=== PATIENT | female | born 1985 | race Caucasian/White ===

== ENCOUNTER → 2016-11-17 | Outpatient (CLI) | payer MEDICARE, MEDICAID ==
--- NOTE | 2016-11-17 15:27 | CR ---
EXAMINATION: Left knee HISTORY: Pain COMPARISON: 11/11/2016 TECHNIQUE: 4 views FINDINGS/IMPRESSION: There is a trace joint space narrowing within the medial compartment of the lef t knee. No fracture, effusion or acute osseous abnormalities noted. Mild osteophyte formation is not ed within the patellofemoral compartment.
== END | disposition home or self-care (01) ==
LOC: MW.CHIM 07:43
PROVIDERS: ATTEND Physician Assistant
DX: M25.562 Pain in left knee (principal); M25.762 Osteophyte, left knee
CPT/HCPCS: 73564-26-LT; 73564-LT; 99203

== ENCOUNTER 2016-11-22 21:11 | Emergency (ER) | payer MEDICARE, MEDICAID ==
--- NOTE | 2016-11-22 22:44 | EDM.PDOC ---
ED HPI GENERAL MEDICAL PROBLEM - General Chief Complaint: General Stated Complaint: PT HAS STOMACH PAINS Time Seen by Provider: 11/22/16 21:14 Source of Information: Reports: Patient History Limitations: Reports: No limitations - History of Present Illness INITIAL COMMENTS - FREE TEXT/NARRATIVE: Presents reporting abdominal pain that started a couple hours ago. She denies nausea, vomiting, constipation or diarrhea. She states she had a normal BM today. She did not try anything for the pain. She did eat a half of a chicken silver wrapped for supper without any nausea or vomiting afterwards. They are living in her car which also serves as a refrigerator. She has had her appendix and gallbladder removed. LMP in August of 2016 patient states that she has taken multiple test at home and they have all been negative. Denies dysuria, vaginal symptoms including bleeding. Left Lower Abdomen Pain Score (Numeric/FACES): 7 - Related Data Allergies Allergy/AdvReac Type Severity Reaction Status Date / Time metronidazole [From Flagyl] Allergy Vomiting Verified 11/22/16 21:32 Home Meds: Home Meds Albuterol [IMW: Albuterol HFA] 1 puff IH ASDIRECTED 10/31/16 [History] ClonazePAM [KlonoPIN] 0.5 mg PO BID PRN 10/31/16 [History] LORazepam 1 mg PO BEDTIME 10/31/16 [History] Ondansetron HCl [Zofran] 8 mg PO ASDIRECTED 10/31/16 [History] Pantoprazole [Protonix] 40 mg PO DAILY 10/31/16 [History] Rizatriptan Benzoate [Maxalt] 10 mg PO ASDIRECTED PRN 10/31/16 [History] Zolpidem Tartrate [Ambien] 5 mg PO BEDTIME 10/31/16 [History] lamoTRIgine [Lamictal] 200 mg PO BID 10/31/16 [History] Past Medical History HEENT History: Reports: None Cardiovascular History: Reports: None Respiratory History: Reports: Asthma Gastrointestinal History: Reports: None Genitourinary History: Reports: None NURSERY HAND History: Reports: None Musculoskeletal History: Reports: None Neurological History: Reports: Seizure Psychiatric History: Reports: ADHD, Anxiety, Bipolar, Depression Endocrine/Metabolic History: Reports: None Hematologic History: Reports: None Immunologic History: Reports: None Oncologic (Cancer) History: Reports: None Dermatologic History: Reports: None - Infectious Disease History Infectious Disease History: Reports: Chicken pox - Past Surgical History HEENT Surgical History: Reports: Tonsillectomy GI Surgical History: Reports: Appendectomy, Cholecystectomy Musculoskeletal Surgical History: Reports: Arthroscopic knee Social & Family History - Family History Family Medical History: Noncontributory Cardiac: Reports: Heart failure, Hypertension, [place] Endocrine/Metabolic: Reports: Diabetes, type II Oncologic: Reports: Bone, Breast - Tobacco Use Smoking Status *Q: Current Every Day Smoker Years of Tobacco use: 16 Packs/Tins Daily: 0.5 - Caffeine Use Caffeine Use: Reports: Soda, Tea Caffeine Use Comment: 1-2 daily - Recreational Drug Use Recreational Drug Use: No ED ROS GENERAL - Review of Systems Review Of Systems: ROS reveals no pertinent complaints other than HPI. ED EXAM, GENERAL - Physical Exam Exam: See Below Exam Limited By: No limitations General Appearance: alert, no apparent distress Ears: normal external exam Nose: normal inspection Throat/Mouth: Normal inspection Head: atraumatic, normocephalic Neck: normal inspection Respiratory/Chest: no respiratory distress Cardiovascular: normal peripheral pulses GI/Abdominal: normal bowel sounds, soft, no distention, other (Mild tenderness. She was playing on her cell phone while I was palpating her abdomen and she didn 't notice) Rectal (Female) Exam: Normal Exam Back Exam: normal inspection Extremities: normal inspection Neurological: alert, oriented Psychiatric: normal affect, normal mood Skin Exam: Warm, Dry, Intact, Normal color, No rash Lymphatic: no adenopathy Course - Vital Signs Last Recorded V/S: Last Vital Signs Temp 36.1 C 11/22/16 21:33 Pulse 99 11/22/16 21:33 Resp 17 11/22/16 21:33 BP 135/76 11/22/16 21:33 Pulse Ox 97 11/22/16 21:33 Departure - Departure Time of Disposition: 22:42 Disposition: Home, Self-Care 01 Condition: good Clinical Impression: Abdominal pain Qualifiers: Abdominal location: unspecified location Qualified Code(s): R10.9 - Unspecified abdominal pain Referrals: PCP,None [Primary Care Provider] - Naldo Kowalski DO [Physician] - Forms: ED Department Discharge Additional Instructions: 1. You may try Pepto-Bismol. You have abdominal plain please try this along with fluids and rest before coming to the emergency room in the future. 2. followup with your primary provider in the clinic 3. return for vaginal bleeding, high fevers, vomiting
== END 2016-11-22 23:01 | disposition home or self-care (01) ==
LOC: MW.ED 21:11
CPT/HCPCS: 99282; 99283

== ENCOUNTER 2016-11-24 17:47 | Emergency (ER) | payer MEDICARE, MEDICAID | END 2016-11-24 17:54 | disposition left against medical advice (07) | LOC: MW.ED 17:47 | DX: Z53.21 Procedure and treatment not carried out due to patient leaving prior to being seen by health care provider (principal) ==

== ENCOUNTER 2016-11-24 19:36 | Emergency (ER) | payer MEDICARE, MEDICAID ==
--- NOTE | 2016-11-24 20:07 | EDM.PDOC ---
ED HPI GENERAL MEDICAL PROBLEM - General Stated Complaint: COUGH/PAIN THROAT Time Seen by Provider: 11/24/16 20:05 Source of Information: Reports: Patient - History of Present Illness INITIAL COMMENTS - FREE TEXT/NARRATIVE: HISTORY AND PHYSICAL: History of present illness: [] Patient has had runny nose for 24 hours, does have some cough secondary to postnasal drip, no sinus pain or tenderness no fever nausea vomiting chills sweats no chest pain shortness breath headache dizziness or palpitation no bowel or urine symptoms Review of systems: As per history of present illness and below otherwise all systems reviewed and negative. Past medical history: As per history of present illness and as reviewed below otherwise noncontributory. Surgical history: As per history of present illness and as reviewed below otherwise noncontributory. Social history: No reported history of drug or alcohol abuse. Family history: As per history of present illness and as reviewed below otherwise noncontributory. Physical exam: HEENT: Atraumatic, normocephalic, pupils reactive, negative for conjunctival pallor or scleral icterus, mucous membranes moist, throat clear, neck supple, nontender, trachea midline. Nares are patent clear nasal discharge no sinus tenderness no meningeal signs Lungs: Clear to auscultation, breath sounds equal bilaterally, chest nontender. Heart: S1S2, regular, negative for clicks, rubs, or JVD. Abdomen: Soft, nondistended, nontender. Negative for masses or hepatosplenomegaly. Negative for costovertebral tenderness. Pelvis: Stable nontender. Genitourinary: Deferred. Rectal: Deferred. Extremities: Atraumatic, negative for cords or calf pain. Neurovascular unremarkable. Neuro: Awake, alert, oriented. Cranial nerves II through XII unremarkable. Cerebellum unremarkable. Motor and sensory unremarkable throughout. Exam nonfocal. Diagnostics: [] Therapeutics: [] [id number] symptomatic therapies Impression: [] Upper respiratory infection Definitive disposition and diagnosis as appropriate pending reevaluation and review of above. - Related Data Allergies Allergy/AdvReac Type Severity Reaction Status Date / Time metronidazole [From Flagyl] Allergy Vomiting Verified 11/22/16 21:32 Home Meds: Home Meds Albuterol [IMW: Albuterol HFA] 1 puff IH ASDIRECTED 10/31/16 [History] ClonazePAM [KlonoPIN] 0.5 mg PO BID PRN 10/31/16 [History] LORazepam 1 mg PO BEDTIME 10/31/16 [History] Ondansetron HCl [Zofran] 8 mg PO ASDIRECTED 10/31/16 [History] Pantoprazole [Protonix] 40 mg PO DAILY 10/31/16 [History] Rizatriptan Benzoate [Maxalt] 10 mg PO ASDIRECTED PRN 10/31/16 [History] Zolpidem Tartrate [Ambien] 5 mg PO BEDTIME 10/31/16 [History] lamoTRIgine [Lamictal] 200 mg PO BID 10/31/16 [History] Past Medical History HEENT History: Reports: None Cardiovascular History: Reports: None Respiratory History: Reports: Asthma Gastrointestinal History: Reports: None Genitourinary History: Reports: None 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 Musculoskeletal History: Reports: None Neurological History: Reports: Seizure Psychiatric History: Reports: ADHD, Anxiety, Bipolar, Depression Endocrine/Metabolic History: Reports: None Hematologic History: Reports: None Immunologic History: Reports: None Oncologic (Cancer) History: Reports: None Dermatologic History: Reports: None - Infectious Disease History Infectious Disease History: Reports: Chicken pox - Past Surgical History HEENT Surgical History: Reports: Tonsillectomy GI Surgical History: Reports: Appendectomy, Cholecystectomy Musculoskeletal Surgical History: Reports: Arthroscopic knee Social & Family History - Family History Family Medical History: Noncontributory Cardiac: Reports: Heart failure, Hypertension, [place] Endocrine/Metabolic: Reports: Diabetes, type II Oncologic: Reports: Bone, Breast - Tobacco Use Smoking Status *Q: Current Every Day Smoker Years of Tobacco use: 16 Packs/Tins Daily: 0.5 - Caffeine Use Caffeine Use: Reports: Soda, Tea Caffeine Use Comment: 1-2 daily - Recreational Drug Use Recreational Drug Use: No ED ROS GENERAL - Review of Systems Review Of Systems: ROS reveals no pertinent complaints other than HPI. ED EXAM, GENERAL - Physical Exam Exam: See Below Departure - Departure Time of Disposition: 20:06 Disposition: Home, Self-Care 01 Condition: good Clinical Impression: URI (upper respiratory infection) Additional Instructions: [id number] symptomatic therapy is as discussed Delsym may benefit also available [id number] Followup with primary care as scheduled The following information is given to patients seen in the emergency department who are being discharged to home. This information is to outline your options for follow-up care. We provide all patients seen in our emergency department with a follow-up referral. The need for follow-up, as well as the timing and circumstances, are variable depending upon the specifics of your emergency department visit. If you don't have a primary care physician on staff, we will provide you with a referral. We always advise you to contact your personal physician following an emergency department visit to inform them of the circumstance of the visit and for follow-up with them and/or the need for any referrals to a consulting specialist. The emergency department will also refer you to a specialist when appropriate. This referral assures that you have the opportunity for follow-up care with a specialist. All of these measure are taken in an effort to provide you with optimal care, which includes your follow-up. Under all circumstances we always encourage you to contact your private physician who remains a resource for coordinating your care. When calling for follow-up care, please make the office aware that this follow-up is from your recent emergency room visit. If for any reason you are refused follow-up, please contact the [facility] emergency department at and asked to speak to the emergency department charge nurse.
== END 2016-11-24 20:25 | disposition home or self-care (01) ==
LOC: MW.ED 19:36
CPT/HCPCS: 99211; 99214; 99282; 99283

== ENCOUNTER → 2016-11-24 | Outpatient (CLI) | payer MEDICARE, MEDICAID | LOC: MW.CHGS 08:00 | CPT/HCPCS: 99211 ==

== ENCOUNTER 2016-11-27 17:03 | Emergency (ER) | payer MEDICARE, MEDICAID ==
--- NOTE | 2016-11-27 17:10 | EDM.PDOC ---
ED HPI GENERAL MEDICAL PROBLEM - General Chief Complaint: Syncope Stated Complaint: VOMITTING FAINT Time Seen by Provider: 11/27/16 17:10 - History of Present Illness INITIAL COMMENTS - FREE TEXT/NARRATIVE: HISTORY AND PHYSICAL: History of present illness: Patient 31-year-old female presents with generalized weakness she has been seen multiple times in the emergency room for a variety of complaints including weakness no fever chills nausea vomiting chest pain short of breath or other concern Review of systems: As per history of present illness and below otherwise all systems reviewed and negative. Past medical history: As per history of present illness and as reviewed below otherwise noncontributory. Surgical history: As per history of present illness and as reviewed below otherwise noncontributory. Social history: No reported history of drug or alcohol abuse. Family history: As per history of present illness and as reviewed below otherwise noncontributory. Physical exam: HEENT: Atraumatic, normocephalic, pupils reactive, negative for conjunctival pallor or scleral icterus, mucous membranes moist, throat clear, neck supple, nontender, trachea midline. Lungs: Clear to auscultation, breath sounds equal bilaterally, chest nontender. Heart: S1S2, regular, negative for clicks, rubs, or JVD. Abdomen: Soft, nondistended, nontender. Negative for masses or hepatosplenomegaly. Negative for costovertebral tenderness. Pelvis: Stable nontender. Genitourinary: Deferred. Rectal: Deferred. Extremities: Atraumatic, negative for cords or calf pain. Neurovascular unremarkable. Neuro: Awake, alert, oriented. Cranial nerves II through XII unremarkable. Cerebellum unremarkable. Motor and sensory unremarkable throughout. Exam nonfocal. Diagnostics: EKG orthostatic vital sign Therapeutics: None Impression: #1 generalized weakness Definitive disposition and diagnosis as appropriate pending reevaluation and review of above. - Related Data Allergies Allergy/AdvReac Type Severity Reaction Status Date / Time metronidazole [From Flagyl] Allergy Vomiting Verified 11/27/16 17:09 Home Meds: Home Meds Albuterol [IMW: Albuterol HFA] 1 puff IH ASDIRECTED 10/31/16 [History] ClonazePAM [KlonoPIN] 0.5 mg PO BID PRN 10/31/16 [History] LORazepam 1 mg PO BEDTIME 10/31/16 [History] Ondansetron HCl [Zofran] 8 mg PO ASDIRECTED 10/31/16 [History] Pantoprazole [Protonix] 40 mg PO DAILY 10/31/16 [History] Rizatriptan Benzoate [Maxalt] 10 mg PO ASDIRECTED PRN 10/31/16 [History] Zolpidem Tartrate [Ambien] 5 mg PO BEDTIME 10/31/16 [History] lamoTRIgine [Lamictal] 200 mg PO BID 10/31/16 [History] Past Medical History - Past Health History Medical/Surgical History: Denies Medical/Surgical History HEENT History: Reports: None Cardiovascular History: Reports: None Respiratory History: Reports: Asthma Gastrointestinal History: Reports: None Genitourinary History: Reports: None 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 Musculoskeletal History: Reports: None Neurological History: Reports: Seizure Psychiatric History: Reports: ADHD, Anxiety, Bipolar, Depression Endocrine/Metabolic History: Reports: None Hematologic History: Reports: None Immunologic History: Reports: None Oncologic (Cancer) History: Reports: None Dermatologic History: Reports: None - Infectious Disease History Infectious Disease History: Reports: Chicken pox - Past Surgical History HEENT Surgical History: Reports: Tonsillectomy GI Surgical History: Reports: Appendectomy, Cholecystectomy Musculoskeletal Surgical History: Reports: Arthroscopic knee Social & Family History - Family History Family Medical History: Noncontributory Cardiac: Reports: Heart failure, Hypertension, [place] Endocrine/Metabolic: Reports: Diabetes, type II Oncologic: Reports: Bone, Breast - Tobacco Use Smoking Status *Q: Current Every Day Smoker Years of Tobacco use: 16 Packs/Tins Daily: 0.5 - Caffeine Use Caffeine Use: Reports: Soda, Tea Caffeine Use Comment: 1-2 daily - Recreational Drug Use Recreational Drug Use: No ED ROS GENERAL - Review of Systems Review Of Systems: ROS reveals no pertinent complaints other than HPI. ED EXAM, GENERAL - Physical Exam Exam: See Below (See dictated) Course - Orders/Labs/Meds Orders: Active Orders 24 hr Category Date Time Status EKG 12 Lead [EKG Documentation Completion] [RC] STAT Care 11/27/16 17:08 Active Departure - Departure Time of Disposition: 17:09 Disposition: Home, Self-Care 01 Condition: good Clinical Impression: Generalized weakness Forms: ED Department Discharge Additional Instructions: The following information is given to patients seen in the emergency department who are being discharged to home. This information is to outline your options for follow-up care. We provide all patients seen in our emergency department with a follow-up referral. The need for follow-up, as well as the timing and circumstances, are variable depending upon the specifics of your emergency department visit. If you don't have a primary care physician on staff, we will provide you with a referral. We always advise you to contact your personal physician following an emergency department visit to inform them of the circumstance of the visit and for follow-up with them and/or the need for any referrals to a consulting specialist. The emergency department will also refer you to a specialist when appropriate. This referral assures that you have the opportunity for followup care with a specialist. All of these measure are taken in an effort to provide you with optimal care, which includes your followup. Under all circumstances we always encourage you to contact your private physician who remains a resource for coordinating your care. When calling for followup care, please make the office aware that this follow-up is from your recent emergency room visit. If for any reason you are refused follow-up, please contact the [facility] emergency department at and asked to speak to the emergency department charge nurse. [facility] [address] [place] [id number] Followup primary medical doctor and/or clinic above is discussed return as needed as discussed - My Orders Last 24 Hours: My Active Orders 11/27/16 17:08 EKG 12 Lead [EKG Documentation Completion] [RC] STAT - Assessment/Plan Last 24 Hours: My Active Orders 11/27/16 17:08 EKG 12 Lead [EKG Documentation Completion] [RC] STAT
== END 2016-11-27 17:26 | disposition home or self-care (01) ==
LOC: MW.ED 17:03
CPT/HCPCS: 93005; 99283; 99284-25

== ENCOUNTER 2016-11-28 19:08 | Emergency (ER) | payer MEDICARE, MEDICAID ==
--- NOTE | 2016-11-28 19:27 | EDM.PDOC ---
ED HPI Trauma - General Chief Complaint: Lower Extremity Injury/Pain Stated Complaint: TOOK OFF TOE NAIL WANTS TO MAKE SURE ITS NOT INFEC Time Seen by Provider: 11/28/16 19:22 - History of Present Illness INITIAL COMMENTS - FREE TEXT/NARRATIVE: HISTORY AND PHYSICAL: History of present illness: Patient 31-year-old female presents with concern of pain swelling and redness of the second digit of her right foot she removed partial nail of her foot that she felt to be infected she denies fever chills nausea vomiting or other problems the chronic intermittent problems with what sounds like fungal infections with or without associated bacterial infections. Review of systems: As per history of present illness and below otherwise all systems reviewed and negative. Past medical history: As per history of present illness and as reviewed below otherwise noncontributory. Surgical history: As per history of present illness and as reviewed below otherwise noncontributory. Social history: No reported history of drug or alcohol abuse. Family history: As per history of present illness and as reviewed below otherwise noncontributory. Physical exam: HEENT: Atraumatic, normocephalic, pupils reactive, negative for conjunctival pallor or scleral icterus, mucous membranes moist, throat clear, neck supple, nontender, trachea midline. Lungs: Clear to auscultation, breath sounds equal bilaterally, chest nontender. Heart: S1S2, regular, negative for clicks, rubs, or JVD. Abdomen: Soft, nondistended, nontender. Negative for masses or hepatosplenomegaly. Negative for costovertebral tenderness. Pelvis: Stable nontender. Genitourinary: Deferred. Rectal: Deferred. Extremities: Patient has a partial nail old and medial aspect second digit right foot since mild erythema no discharge [facility] neurovascular is unremarkable Neuro: Awake, alert, oriented. Cranial nerves II through XII unremarkable. Cerebellum unremarkable. Motor and sensory unremarkable throughout. Exam nonfocal. Diagnostics: None Therapeutics: None Impression: #1 early superficial cellulitis second digit right foot Definitive disposition and diagnosis as appropriate pending reevaluation and review of above. Allergies/ADRs: Allergies metronidazole [From Flagyl] Allergy (Verified 11/28/16 19:24) Vomiting Home Medications: Ambulatory Orders Albuterol [IMW: Albuterol HFA] 1 puff IH ASDIRECTED 10/31/16 [Confirmed 11/27/16 ] ClonazePAM [KlonoPIN] 0.5 mg PO BID PRN 10/31/16 [Confirmed 11/27/16] LORazepam 1 mg PO BEDTIME 10/31/16 [Confirmed 11/27/16] Ondansetron HCl [Zofran] 8 mg PO ASDIRECTED 10/31/16 [Confirmed 11/27/16] Pantoprazole [Protonix] 40 mg PO DAILY 10/31/16 [Confirmed 11/27/16] Rizatriptan Benzoate [Maxalt] 10 mg PO ASDIRECTED PRN 10/31/16 [Confirmed ] Zolpidem Tartrate [Ambien] 5 mg PO BEDTIME 10/31/16 [Confirmed 11/27/16] lamoTRIgine [Lamictal] 200 mg PO BID 10/31/16 [Confirmed 11/27/16] Past Medical History - Past Health History Medical/Surgical History: Denies Medical/Surgical History HEENT History: Reports: None Cardiovascular History: Reports: None Respiratory History: Reports: Asthma Gastrointestinal History: Reports: None Genitourinary History: Reports: None 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 Musculoskeletal History: Reports: None Neurological History: Reports: Seizure Psychiatric History: Reports: ADHD, Anxiety, Bipolar, Depression Endocrine/Metabolic History: Reports: Obesity/BMI 30+ Hematologic History: Reports: None Immunologic History: Reports: None Oncologic (Cancer) History: Reports: None Dermatologic History: Reports: None - Infectious Disease History Infectious Disease History: Reports: Chicken pox - Past Surgical History Head Surgeries/Procedures: Reports: None HEENT Surgical History: Reports: Tonsillectomy GI Surgical History: Reports: Appendectomy, Cholecystectomy Musculoskeletal Surgical History: Reports: Arthroscopic knee Social & Family History - Family History Family Medical History: Noncontributory Cardiac: Reports: Heart failure, Hypertension, [place] Endocrine/Metabolic: Reports: Diabetes, type II Oncologic: Reports: Bone, Breast - Tobacco Use Smoking Status *Q: Never Smoker Years of Tobacco use: 16 Packs/Tins Daily: 0.5 - Caffeine Use Caffeine Use: Reports: None Caffeine Use Comment: 1-2 daily - Recreational Drug Use Recreational Drug Use: No Drug Use in Last 12 Months: No Review of Systems - Review of Systems Review Of Systems: ROS reveals no pertinent complaints other than HPI. Trauma Exam - Physical Exam Exam: See Below (See dictated) Departure - Departure Time of Disposition: 19:26 Disposition: Home, Self-Care 01 Condition: good Clinical Impression: Cellulitis Forms: ED Department Discharge Additional Instructions: The following information is given to patients seen in the emergency department who are being discharged to home. This information is to outline your options for follow-up care. We provide all patients seen in our emergency department with a follow-up referral. The need for follow-up, as well as the timing and circumstances, are variable depending upon the specifics of your emergency department visit. If you don't have a primary care physician on staff, we will provide you with a referral. We always advise you to contact your personal physician following an emergency department visit to inform them of the circumstance of the visit and for follow-up with them and/or the need for any referrals to a consulting specialist. The emergency department will also refer you to a specialist when appropriate. This referral assures that you have the opportunity for followup care with a specialist. All of these measure are taken in an effort to provide you with optimal care, which includes your followup. Under all circumstances we always encourage you to contact your private physician who remains a resource for coordinating your care. When calling for followup care, please make the office aware that this follow-up is from your recent emergency room visit. If for any reason you are refused follow-up, please contact the [facility] emergency department at and asked to speak to the emergency department charge nurse [facility] [address] [place] [id number] Gilberto is prescribed Motrin or Tylenol as directed follow up primary medical doctor in her clinic as discussed with for 48 hours return as needed if
== END 2016-11-28 19:55 | disposition home or self-care (01) ==
LOC: MW.ED 19:08
CPT/HCPCS: 99282; 99283

== ENCOUNTER 2016-11-29 21:24 | Emergency (ER) | payer MEDICARE, MEDICAID ==
--- NOTE | 2016-11-29 21:35 | EDM.PDOC ---
ED HISTORY OF PRESENT ILLNESS - General Chief Complaint: Chest Pain Stated Complaint: AMBULANCE Time Seen by Provider: 11/29/16 21:25 Source of Information: Reports: Patient, EMS History Limitations: Reports: No limitations - History of Present Illness INITIAL COMMENTS - FREE TEXT/NARRATIVE: HISTORY AND PHYSICAL: History of present illness: [Patient comes to the emergency room via EMS with complaints of chest pain. She' s not had any associated symptoms. Has a known history of anxiety. She had been at her fianc's job smoking a cigarette with him when her chest pain developed. She reports to EMS that she had been communicating with an ex-boyfriend on phone , when her fianc walked into the room. This event occurred immediately before her chest pain developed. She describes the pain as a pressure to the center of her chest causing some shortness of breath. She has a history of asthma. She continues to smoke at least one half pack per day. No radiation of pain into her jaw neck or shoulder. She has no other complaints or concerns at this time.] Review of systems: As per history of present illness and below otherwise all systems reviewed and negative. Past medical history: As per history of present illness and as reviewed below otherwise noncontributory. Surgical history: As per history of present illness and as reviewed below otherwise noncontributory. Social history: No reported history of drug or alcohol abuse. Family history: As per history of present illness and as reviewed below otherwise noncontributory. Physical exam: General: Well-developed, well-nourished female in no acute distress. HEENT: Atraumatic, normocephalic. mucous membranes moist. Lungs: Slight wheeze to upper lung dior bilaterally. No crackles or rales. Heart: S1S2, regular rate and rhythm. Abdomen: Obese. Soft, nondistended, nontender. Negative for costovertebral tenderness. Pelvis: Stable nontender. Genitourinary: Deferred. Rectal: Deferred. Extremities: Atraumatic, and without deformity.. Neurovascular unremarkable. Neuro: Awake, alert, oriented. Motor and sensory unremarkable throughout. Exam nonfocal. Diagnostics: [EKG, chest x-ray] Impression: [Atypical chest pain] Plan: [Recommend Motrin or Tylenol as needed for chest discomfort. Followup with primary care provider in 48-72 hours. Patient's verbalizes understanding today' s plan all questions are answered and concerns are addressed the] Definitive disposition and diagnosis as appropriate pending reevaluation and review of above. - Related Data Allergies/ADRs: Allergies Allergy/AdvReac Type Severity Reaction Status Date / Time metronidazole [From Flagyl] Allergy Vomiting Verified 11/28/16 19:24 Home Meds: Home Meds Albuterol [IMW: Albuterol HFA] 1 puff IH ASDIRECTED 10/31/16 [History] ClonazePAM [KlonoPIN] 0.5 mg PO BID PRN 10/31/16 [History] LORazepam 1 mg PO BEDTIME 10/31/16 [History] Ondansetron HCl [Zofran] 8 mg PO ASDIRECTED 10/31/16 [History] Pantoprazole [Protonix] 40 mg PO DAILY 10/31/16 [History] Rizatriptan Benzoate [Maxalt] 10 mg PO ASDIRECTED PRN 10/31/16 [History] Zolpidem Tartrate [Ambien] 5 mg PO BEDTIME 10/31/16 [History] lamoTRIgine [Lamictal] 200 mg PO BID 10/31/16 [History] Past Medical History - Past Health History Medical/Surgical History: Denies Medical/Surgical History HEENT History: Reports: None Cardiovascular History: Reports: None Respiratory History: Reports: Asthma Gastrointestinal History: Reports: None Genitourinary History: Reports: None 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 Musculoskeletal History: Reports: None Neurological History: Reports: Seizure Psychiatric History: Reports: ADHD, Anxiety, Bipolar, Depression Endocrine/Metabolic History: Reports: Obesity/BMI 30+ Hematologic History: Reports: None Immunologic History: Reports: None Oncologic (Cancer) History: Reports: None Dermatologic History: Reports: None - Infectious Disease History Infectious Disease History: Reports: Chicken pox - Past Surgical History Head Surgeries/Procedures: Reports: None HEENT Surgical History: Reports: Tonsillectomy GI Surgical History: Reports: Appendectomy, Cholecystectomy Musculoskeletal Surgical History: Reports: Arthroscopic knee Social & Family History - Family History Family Medical History: Noncontributory Cardiac: Reports: Heart failure, Hypertension, [place] Endocrine/Metabolic: Reports: Diabetes, type II Oncologic: Reports: Bone, Breast - Tobacco Use Smoking Status *Q: Never Smoker Years of Tobacco use: 16 Packs/Tins Daily: 0.5 - Caffeine Use Caffeine Use: Reports: None Caffeine Use Comment: 1-2 daily - Recreational Drug Use Recreational Drug Use: No Drug Use in Last 12 Months: No ED ROS GENERAL - Review of Systems Review Of Systems: ROS reveals no pertinent complaints other than HPI. ED EXAM, GENERAL - Physical Exam Exam: See Below Course - Orders/Labs/Meds Orders: Active Orders 24 hr Category Date Time Status EKG 12 Lead [EKG Documentation Completion] [RC] STAT Care 11/29/16 21:31 Active Chest 1V Frontal [CR] Stat Exams 11/29/16 21:30 Taken Departure - Departure Time of Disposition: 22:00 Disposition: Home, Self-Care 01 Condition: good Clinical Impression: Atypical chest pain Additional Instructions: The following information is given to patients seen in the emergency department who are being discharged to home. This information is to outline your options for follow-up care. We provide all patients seen in our emergency department with a follow-up referral. The need for follow-up, as well as the timing and circumstances, are variable depending upon the specifics of your emergency department visit. If you don't have a primary care physician on staff, we will provide you with a referral. We always advise you to contact your personal physician following an emergency department visit to inform them of the circumstance of the visit and for follow-up with them and/or the need for any referrals to a consulting specialist. The emergency department will also refer you to a specialist when appropriate. This referral assures that you have the opportunity for follow-up care with a specialist. All of these measure are taken in an effort to provide you with optimal care, which includes your follow-up. Under all circumstances we always encourage you to contact your private physician who remains a resource for coordinating your care. When calling for follow-up care, please make the office aware that this follow-up is from your recent emergency room visit. If for any reason you are refused follow-up, please contact the [facility] emergency department at and asked to speak to the emergency department charge nurse. [facility] [address] [place] [id number] Followup with your primary care provider in 24-48 hours. Take Tylenol or ibuprofen as needed for discomfort. Return to ER as needed as discussed.
[2016-11-29 22:40] VITALS: BP 142/81
--- NOTE | 2016-11-30 13:44 | CR ---
EXAM DATE: 11/29/16 PATIENT'S AGE: 31 Patient: JEAN-CLAUDE AMEZCUA Facility: [place], [place] Site . Site : 1985 Study: XRay Chest [id number]/7/2017 9:56:41 PM Ordering Physician: Doctor Bhardwaj Final Report: INDICATIONS: Chest pain. TECHNIQUE: Chest 1 view. COMPARISON: None FINDINGS: No pneumothorax, pleural effusion or airspace consolidation. No pulmonary edema. Cardiac and mediastinal contours are within normal limits. Upper abdomen and osseous structures show no acute abnormality. IMPRESSION: No acute cardiopulmonary disease. Dictated by Flaco Rosario MD @ 11/29/2016 10:13:47 PM Dictated by: Flaco Rosario MD @ 11/29/2016 22:13:54 (Electronic Signature) Report Signed by Proxy and Original Signed Document filed in the Medical Record. MTDNisha
== END 2016-11-29 22:35 | disposition home or self-care (01) ==
LOC: MW.ED 21:24
DX: R07.89 Other chest pain (principal); S91.209A Unspecified open wound of unspecified toe(s) with damage to nail, initial encounter; L03.031 Cellulitis of right toe; M79.671 Pain in right foot; G57.92 Unspecified mononeuropathy of left lower limb; F31.9 Bipolar disorder, unspecified; E66.9 Obesity, unspecified; Z88.6 Allergy status to analgesic agent; Z79.899 Other long term (current) drug therapy; Z68.30 Body mass index [BMI] 30.0-30.9, adult; Z90.49 Acquired absence of other specified parts of digestive tract; Z90.89 Acquired absence of other organs; Z98.890 Other specified postprocedural states
CPT/HCPCS: 71010; 71010-26; 93005; 99283; 99285-25

== ENCOUNTER → 2016-11-29 | Outpatient (CLI) | payer MEDICARE, MEDICAID | LOC: MW.CHPOD 13:50 | PROVIDERS: ATTEND Podiatrist Foot & Ankle Surgery | DX: M79.673 Pain in unspecified foot (principal); S91.209A Unspecified open wound of unspecified toe(s) with damage to nail, initial encounter; L03.031 Cellulitis of right toe; M79.671 Pain in right foot; G57.92 Unspecified mononeuropathy of left lower limb | CPT/HCPCS: 99203 ==

== ENCOUNTER → 2016-12-01 | Outpatient (CLI) | payer MEDICARE, MEDICAID | LOC: MW.CHIM 08:00 | PROVIDERS: ATTEND Internal Medicine | DX: R07.89 Other chest pain (principal); G40.909 Epilepsy, unspecified, not intractable, without status epilepticus; F17.200 Nicotine dependence, unspecified, uncomplicated; F31.9 Bipolar disorder, unspecified | CPT/HCPCS: 99214 ==

== ENCOUNTER → 2016-12-02 | Outpatient (CLI) | payer MEDICARE, MEDICAID ==
--- NOTE | 2016-12-05 15:03 | CR ---
EXAM DATE: 12/02/16 PATIENT'S AGE: 31 Patient: JEAN-CLAUDE AMEZCUA Facility: [place], [place] Site . Site : 1985 Study: XRay Extremity Left FOOT [id number]/10/2017 3:13:00 PM Ordering Physician: Namita Jay Final Report: Indication: Pain Technique: Two weight-bearing views of the left foot Comparison: November 13, 2016 Findings/impression: : Postoperative changes of a lateral plate and screw placement within the left 5th metatarsal. Posttraumatic deformity of the 5th metatarsal. A minimal periprosthetic lucency surrounds the distal most screw, unchanged. No hardware fracture. No osseous fracture or subluxation. No bony erosions. Mild degenerative changes again noted within the midfoot. Dictated by Kellen Calles MD @ Dec 03 2016 1:05AM (Electronic Signature) Report Signed by Proxy and Original Signed Document filed in the Medical Record. KARIS
== END ==
LOC: MW.DI 14:49
PROVIDERS: ATTEND Podiatrist Foot & Ankle Surgery
DX: M79.673 Pain in unspecified foot (principal)
CPT/HCPCS: 73620-26-LT; 73620-LT

== ENCOUNTER 2016-12-03 16:54 | Emergency (ER) | payer MEDICARE, MEDICAID ==
--- NOTE | 2016-12-03 17:16 | EDM.PDOC ---
ED HPI GI/ABDOMINAL - General Chief Complaint: Abdominal Pain Stated Complaint: PT HAS STOMACH PAINS Time Seen by Provider: 12/03/16 16:56 Source of Information: Reports: Patient History Limitations: Reports: No limitations - History of Present Illness INITIAL COMMENTS - FREE TEXT/NARRATIVE: History of present illness: [] Patient has a history of a hiatal hernia and was bending down to move a bed and felt that ruptured at 4:30 this afternoon. He did not take anything for pain the Review of systems: As per history of present illness and below otherwise all systems reviewed and negative. Past medical history: As per history of present illness and as reviewed below otherwise noncontributory. Surgical history: As per history of present illness and as reviewed below otherwise noncontributory. Social history: No reported history of drug or alcohol abuse. Family history: As per history of present illness and as reviewed below otherwise noncontributory. Physical exam: General: Well developed, well nourished in NAD HEENT: Atraumatic, normocephalic, pupils reactive, negative for conjunctival pallor or scleral icterus, mucous membranes moist, throat clear, neck supple, nontender, trachea midline. Lungs: Clear to auscultation, breath sounds equal bilaterally, chest nontender. Heart: S1S2, regular, negative for clicks, rubs, or JVD. Abdomen: Obese, normal active bowel sounds, Soft, nondistended, tender in epigastrium without rebound or guarding. Negative for masses or hepatosplenomegaly. Negative for costovertebral tenderness. Pelvis: Stable nontender. Genitourinary: Deferred. Rectal: Deferred. Extremities: Atraumatic, negative for cords or calf pain. Neurovascular unremarkable. Neuro: Awake, alert, oriented. Cranial nerves II through XII unremarkable. Cerebellum unremarkable. Motor and sensory unremarkable throughout. Exam nonfocal. Diagnostics: [] Vital signs stable exam deferred to peritonitis, ultrasound was used to evaluate albumin at bedside no free fluid was noted Therapeutics: [] Impression: [] Hiatal hernia abdominal pain Plan: [] Maalox for pain Definitive disposition and diagnosis as appropriate pending reevaluation and review of above. 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 Musculoskeletal History: Reports: None Neurological History: Reports: Seizure Psychiatric History: Reports: ADHD, Anxiety, Bipolar, Depression Endocrine/Metabolic History: Reports: Obesity/BMI 30+ Hematologic History: Reports: None Immunologic History: Reports: None Oncologic (Cancer) History: Reports: None Dermatologic History: Reports: None - Infectious Disease History Infectious Disease History: Reports: Chicken pox - Past Surgical History Head Surgeries/Procedures: Reports: None HEENT Surgical History: Reports: Tonsillectomy GI Surgical History: Reports: Appendectomy, Cholecystectomy Musculoskeletal Surgical History: Reports: Arthroscopic knee Social & Family History - Family History Family Medical History: Noncontributory Cardiac: Reports: Heart failure, Hypertension, [place] Endocrine/Metabolic: Reports: Diabetes, type II Oncologic: Reports: Bone, Breast - Tobacco Use Smoking Status *Q: Never Smoker Years of Tobacco use: 16 Packs/Tins Daily: 0.5 - Caffeine Use Caffeine Use: Reports: None Caffeine Use Comment: 1-2 daily - Recreational Drug Use Recreational Drug Use: No Drug Use in Last 12 Months: No ED ROS GENERAL - Review of Systems Review Of Systems: See Below (See history of present illness) ED EXAM, GI/ABD - Physical Exam Exam: See Below (See history of present illness) Course - Vital Signs Last Recorded V/S: Last Vital Signs Temp 37.1 C 12/03/16 17:20 Pulse 94 12/03/16 17:20 Resp 16 12/03/16 17:20 BP 125/87 12/03/16 17:20 Pulse Ox 96 12/03/16 17:20 Departure - Departure Time of Disposition: 17:37 Disposition: Home, Self-Care 01 Condition: good Clinical Impression: Abdominal pain Qualifiers: Abdominal location: unspecified location Qualified Code(s): R10.9 - Unspecified abdominal pain Forms: ED Department Discharge Additional Instructions: The following information is given to patients seen in the emergency department who are being discharged to home. This information is to outline your options for follow-up care. We provide all patients seen in our emergency department with a follow-up referral. The need for follow-up, as well as the timing and circumstances, are variable depending upon the specifics of your emergency department visit. If you don't have a primary care physician on staff, we will provide you with a referral. We always advise you to contact your personal physician following an emergency department visit to inform them of the circumstance of the visit and for follow-up with them and/or the need for any referrals to a consulting specialist. The emergency department will also refer you to a specialist when appropriate. This referral assures that you have the opportunity for follow-up care with a specialist. All of these measure are taken in an effort to provide you with optimal care, which includes your follow-up. Under all circumstances we always encourage you to contact your private physician who remains a resource for coordinating your care. When calling for follow-up care, please make the office aware that this follow-up is from your recent emergency room visit. If for any reason you are refused follow-up, please contact the [facility] Emergency Department at and asked to speak to the emergency department charge nurseYovani Guerrero for pain Followup PMD [facility] [address] [place] [id number]
[2016-12-03 17:23] VITALS: BP 125/87
== END 2016-12-03 17:20 | disposition home or self-care (01) ==
LOC: MW.ED 16:54
DX: K44.9 Diaphragmatic hernia without obstruction or gangrene (principal); J45.909 Unspecified asthma, uncomplicated; F41.9 Anxiety disorder, unspecified; F32.9 Major depressive disorder, single episode, unspecified; E66.9 Obesity, unspecified; Z88.8 Allergy status to other drugs, medicaments and biological substances; Z98.890 Other specified postprocedural states; Z90.49 Acquired absence of other specified parts of digestive tract; Z79.899 Other long term (current) drug therapy
CPT/HCPCS: 99282; 99283

== ENCOUNTER 2016-12-06 19:44 | Emergency (ER) | payer MEDICARE, MEDICAID ==
[2016-12-06 19:52] VITALS: BP 132/71
[2016-12-06] MEDS ORDERED: Lidocaine 2% Viscous Solution 15 ML Cup PO ONE (20:00)
--- NOTE | 2016-12-06 20:04 | EDM.PDOC ---
ED HPI GENERAL MEDICAL PROBLEM - General Chief Complaint: General Stated Complaint: PAIN/SORE LIP Time Seen by Provider: 12/06/16 19:49 - History of Present Illness INITIAL COMMENTS - FREE TEXT/NARRATIVE: HISTORY AND PHYSICAL: History of present illness: The patient is a 31-year-old female who is well-known to the ED staff and myself and presents with complaints of soreness and redness to her hard palate area where she has a full plate of dentures and there is irritation going on there. The patient denies any sore throat fever chills chest pain or shortness of breath and has no lip or tongue swelling or lesions. The patient states that the dentures are several years old and she has not been able to see the dentist to get them adjusted. The patient has not used any [id number] preps try to help with the pain. She's eating and drinking normally. Review of systems: As per history of present illness and below otherwise all systems reviewed and negative. Past medical history: As per history of present illness and as reviewed below otherwise noncontributory. Surgical history: As per history of present illness and as reviewed below otherwise noncontributory. Social history: No reported history of drug or alcohol abuse. Family history: As per history of present illness and as reviewed below otherwise noncontributory. Physical exam: General: Well-developed well-nourished female who is nontoxic vital signs of reviewed by me. She speaks clearly and easily. HEENT: Atraumatic, normocephalic, pupils reactive, negative for conjunctival pallor or scleral icterus, mucous membranes moist, throat clear, neck supple, nontender, trachea midline. At the hard palate there were several areas of redness and irritation more on the lateral aspects but there is no gum swelling or to the swelling. Soft palate is intact and nontender without any lesions and there is no lip or tongue swelling and no facial edema. Lungs: Clear to auscultation, breath sounds equal bilaterally, chest nontender. Heart: S1S2, regular, negative for clicks, rubs, or JVD. Abdomen: Soft, nondistended, nontender. NABS. Genitourinary: Deferred. Rectal: Deferred. Extremities: Atraumatic, we'll range of motion without defects or deficits Neurovascular unremarkable. Neuro: Awake, alert, oriented. Cranial nerves II through XII unremarkable. Cerebellum unremarkable. Motor and sensory unremarkable throughout. Exam nonfocal. Diagnostics: Therapeutics: Viscous lidocaine Impression: Oral irritation secondary to dentures Definitive disposition and diagnosis as appropriate pending reevaluation and review of above. 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 Musculoskeletal History: Reports: None Neurological History: Reports: Seizure Psychiatric History: Reports: ADHD, Anxiety, Bipolar, Depression Endocrine/Metabolic History: Reports: Obesity/BMI 30+ Hematologic History: Reports: None Immunologic History: Reports: None Oncologic (Cancer) History: Reports: None Dermatologic History: Reports: None - Infectious Disease History Infectious Disease History: Reports: Chicken pox - Past Surgical History Head Surgeries/Procedures: Reports: None HEENT Surgical History: Reports: Tonsillectomy GI Surgical History: Reports: Appendectomy, Cholecystectomy Musculoskeletal Surgical History: Reports: Arthroscopic knee Social & Family History - Family History Family Medical History: Noncontributory Cardiac: Reports: Heart failure, Hypertension, [place] Endocrine/Metabolic: Reports: Diabetes, type II Oncologic: Reports: Bone, Breast - Tobacco Use Smoking Status *Q: Never Smoker Years of Tobacco use: 16 Packs/Tins Daily: 0.5 Used Tobacco, but Quit: No Second Hand Smoke Exposure: No - Caffeine Use Caffeine Use: Reports: None Caffeine Use Comment: 1-2 daily - Recreational Drug Use Recreational Drug Use: No Drug Use in Last 12 Months: No ED ROS GENERAL - Review of Systems Review Of Systems: ROS reveals no pertinent complaints other than HPI. ED EXAM, GENERAL - Physical Exam Exam: See Below (See dictation) Course - Vital Signs Last Recorded V/S: Last Vital Signs Temp 36.8 C 12/06/16 19:50 Pulse 95 12/06/16 19:50 Resp 16 12/06/16 19:50 BP 132/71 12/06/16 19:50 Pulse Ox 96 12/06/16 19:50 - Orders/Labs/Meds Orders: Active Orders 24 hr Category Date Time Status Lidocaine 2% [Xylocaine 2% Viscous] Med 12/06/16 20:00 Once 15 ml PO ONETIME ONE Departure - Departure Time of Disposition: 20:03 Disposition: Home, Self-Care 01 Condition: good Clinical Impression: Irritation of oral cavity Forms: ED Department Discharge Additional Instructions: The following information is given to patients seen in the emergency department who are being discharged to home. This information is to outline your options for follow-up care. We provide all patients seen in our emergency department with a follow-up referral. The need for follow-up, as well as the timing and circumstances, are variable depending upon the specifics of your emergency department visit. If you don't have a primary care physician on staff, we will provide you with a referral. We always advise you to contact your personal physician following an emergency department visit to inform them of the circumstance of the visit and for follow-up with them and/or the need for any referrals to a consulting specialist. The emergency department will also refer you to a specialist when appropriate. This referral assures that you have the opportunity for followup care with a specialist. All of these measure are taken in an effort to provide you with optimal care, which includes your followup. Under all circumstances we always encourage you to contact your private physician who remains a resource for coordinating your care. When calling for followup care, please make the office aware that this follow-up is from your recent emergency room visit. If for any reason you are refused follow-up, please contact the [facility] emergency department at and ask to speak to the emergency department charge nurse. [facility] Primary care- Internal Medicine and Family [address] [address] Please use [id number] Ambsol or [place] baby teething gel /any DVT being jealous to help with discomfort and try to remove the dentures whenever you're able. Please call and follow up with local dentist for further care and evaluation and return here as needed and as discussed - My Orders Last 24 Hours: My Active Orders 12/06/16 20:00 Lidocaine 2% [Xylocaine 2% Viscous] 15 ml PO ONETIME ONE - Assessment/Plan Last 24 Hours: My Active Orders 12/06/16 20:00 Lidocaine 2% [Xylocaine 2% Viscous] 15 ml PO ONETIME ONE
== END 2016-12-06 20:13 | disposition home or self-care (01) ==
LOC: MW.ED 19:44
DX: K14.6 Glossodynia (principal); E66.9 Obesity, unspecified; Z88.6 Allergy status to analgesic agent; Z79.899 Other long term (current) drug therapy; Z68.30 Body mass index [BMI] 30.0-30.9, adult; Z90.49 Acquired absence of other specified parts of digestive tract; Z90.89 Acquired absence of other organs; Z98.890 Other specified postprocedural states
CPT/HCPCS: 99282; A9270

== ENCOUNTER 2016-12-08 19:35 | Emergency (ER) | payer MEDICARE, MEDICAID ==
--- NOTE | 2016-12-08 19:51 | EDM.PDOC ---
ED HPI EYE COMPLAINT - General Chief Complaint: Eye Problems Stated Complaint: SOMETHING IN R EYE Time Seen by Provider: 12/08/16 19:50 Source: Reports: Patient History Limitations: Reports: No limitations - History of Present Illness INITIAL COMMENTS - FREE TEXT/NARRATIVE: HISTORY AND PHYSICAL: [31-year-old female presenting with something in her right eye. She was driving and felt something dust hit her eye she has tried not to rub it] History of Present Illness: [This occurred this early afternoon.] Review of Systems: As per history of present illness and below otherwise all systems reviewed and negative. Past medical history: As per history of present illness and as reviewed below otherwise noncontributory. Surgical history: As per history of present illness and as reviewed below otherwise noncontributory. Social history: No reported history of drug or alcohol abuse. Family history: As per history of present illness and as reviewed below otherwise noncontributory. Physical exam: Alert and oriented. Snellen 20/25 bilateral HEENT: Atraumatic, normocehpalic, pupils reactive, negative for conjunctival pallor or scleral icterus, mucous membranes moist, throat clear, neck supple, nontender, trachea midline. Lungs: Clear to auscultation, breath sounds equal bilaterally, chest non tender. Heart: S1S2, regular, negative for clicks, rubs, or JVD. Abdomen: Soft, nondistended, nontender. Negative for masses or hepatossplenmegaly. Negative for costovertebral tenderness. Pelvis: Stable nontender. Genitourinary: Deferred. Rectal: Deferred Extremities: Atraumatic, negative for cords or calf pain. Neurovascular unremarkable. Neuro: Awake, alert, oriented. Cranial nerves II through XII unremarkable. Cerebellum unremarkable. Motor and sensory unremarkable throughout. Exam nonfocal. Diagnostics: [] Therapeutics: [Eye irrigation] Impression: [Improved i-STATUS is no foreign body was noted] Plan: [Home use some refresh eyedrop Followup with primary care provider If you do not have a primary care provider please establish at clinic] Definitive disposition and diagnosis as appropriate pending reevaluation and review of above. 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 Musculoskeletal History: Reports: None Neurological History: Reports: Seizure Psychiatric History: Reports: ADHD, Anxiety, Bipolar, Depression Endocrine/Metabolic History: Reports: Obesity/BMI 30+ Hematologic History: Reports: None Immunologic History: Reports: None Oncologic (Cancer) History: Reports: None Dermatologic History: Reports: None - Infectious Disease History Infectious Disease History: Reports: Chicken pox - Past Surgical History Head Surgeries/Procedures: Reports: None HEENT Surgical History: Reports: Tonsillectomy GI Surgical History: Reports: Appendectomy, Cholecystectomy Musculoskeletal Surgical History: Reports: Arthroscopic knee Social & Family History - Family History Family Medical History: Noncontributory Cardiac: Reports: Heart failure, Hypertension, [place] Endocrine/Metabolic: Reports: Diabetes, type II Oncologic: Reports: Bone, Breast - Tobacco Use Smoking Status *Q: Never Smoker Years of Tobacco use: 16 Packs/Tins Daily: 0.5 Used Tobacco, but Quit: No Second Hand Smoke Exposure: No - Caffeine Use Caffeine Use: Reports: None Caffeine Use Comment: 1-2 daily - Recreational Drug Use Recreational Drug Use: No Drug Use in Last 12 Months: No ED ROS GENERAL - Review of Systems Review Of Systems: See Below ED EXAM GENERAL W FULL EYE - Physical Exam Exam: See Below Course - Vital Signs Last Recorded V/S: Last Vital Signs Temp 36.1 C 12/08/16 19:56 Pulse 96 12/08/16 19:56 Resp 16 12/08/16 19:56 BP 133/83 12/08/16 19:56 Pulse Ox 98 12/08/16 19:56 Departure - Departure Time of Disposition: 20:14 Disposition: Home, Self-Care 01 Condition: good Clinical Impression: Foreign body accidentally entering eye and adnexa Instructions: Eye Foreign Body, [id number] Forms: ED Department Discharge Additional Instructions: The following information is given to patients seen in the emergency department who are being discharged to home. This information is to outline your options for follow-up care. We provide all patients seen in our emergency department with a follow-up referral. The need for follow-up, as well as the timing and circumstances, are variable depending upon the specifics of your emergency department visit. If you don't have a primary care physician on staff, we will provide you with a referral. We always advise you to contact your personal physician following an emergency department visit to inform them of the circumstance of the visit and for follow-up with them and/or the need for any referrals to a consulting specialist. The emergency department will also refer you to a specialist when appropriate. This referral assures that you have the opportunity for followup care with a specialist. All of these measure are taken in an effort to provide you with optimal care, which includes your followup. Under all circumstances we always encourage you to contact your private physician who remains a resource for coordinating your care. When calling for followup care, please make the office aware that this follow-up is from your recent emergency room visit. If for any reason you are refused follow-up, please contact the [facility] emergency department at and asked to speak to the emergency department charge nurse.
[2016-12-08 20:27] VITALS: BP 109/91
== END 2016-12-08 20:22 | disposition home or self-care (01) ==
LOC: MW.ED 19:35
DX: T15.91XA Foreign body on external eye, part unspecified, right eye, initial encounter (principal); E66.9 Obesity, unspecified; W45.8XXA Other foreign body or object entering through skin, initial encounter; Z88.6 Allergy status to analgesic agent; Z68.30 Body mass index [BMI] 30.0-30.9, adult; Z98.890 Other specified postprocedural states
CPT/HCPCS: 99282

== ENCOUNTER → 2016-12-09 | Outpatient (CLI) | payer MEDICARE, MEDICAID | LOC: MW.CHPOD 08:00 | PROVIDERS: ATTEND Podiatrist Foot & Ankle Surgery | DX: M79.673 Pain in unspecified foot (principal); G57.92 Unspecified mononeuropathy of left lower limb | CPT/HCPCS: G0463 ==

== ENCOUNTER 2016-12-10 06:03 | Emergency (ER) | payer MEDICARE, MEDICAID ==
[2016-12-10] MEDS ORDERED: Ibuprofen 600 MG Tab PO ONE (06:17)
--- NOTE | 2016-12-10 06:22 | EDM.PDOC ---
ED HPI Trauma - General Chief Complaint: Lower Extremity Injury/Pain Stated Complaint: PAINFUL TOE Time Seen by Provider: 12/10/16 06:13 - History of Present Illness INITIAL COMMENTS - FREE TEXT/NARRATIVE: HISTORY AND PHYSICAL: History of present illness: Patient is a 31-year-old female who has had multiple ER visits for multitude of medical issues and complaints and presents tonight with pain to her second toe of her left foot that started this morning. Patient denies any trauma to the area and in fact saw the production repairer 6 days ago and had an x-ray performed and she has a history of having surgery on her foot and wanted evaluation. X-ray at that time was reviewed by me and revealed no evidence of any acute changes. The patient was given a special foot sleeve that she is supposed to be wearing and she says she has been only semi-compliant. The patient has a history of nail loss on that toe and she says it just hurts. She denies any trauma to the area or any systemic complaints of fever chills nausea vomiting or proximal leg pain. Patient did not take anything for pain prior to coming here Review of systems: As per history of present illness and below otherwise all systems reviewed and negative. Past medical history: As per history of present illness and as reviewed below otherwise noncontributory. Surgical history: As per history of present illness and as reviewed below otherwise noncontributory. Social history: No reported history of drug or alcohol abuse. Family history: As per history of present illness and as reviewed below otherwise noncontributory. Physical exam: General: Well-developed overweight female who is nontoxic vital signs are reviewed me HEENT: Atraumatic, normocephalic, negative for conjunctival pallor or scleral icterus, mucous membranes moist, throat clear, neck supple, nontender, trachea midline. Lungs: Clear to auscultation, breath sounds equal bilaterally, chest nontender. Heart: S1S2, regular rate and rhythm no overt murmur Genitourinary: Deferred. Rectal: Deferred. Extremities: Atraumatic, full range of motion without defects or deficits, the legs are negative for cords or calf pain. Neurovascular unremarkable. At the second toe of left foot there is an absent toenail which is chronic-appearing and there is a callus-like skin on the dorsal aspect of the toe without any open wounds erythema or defects. The toe is not overtly swollen or erythematous and there is no ecchymosis. Patient is able to range of motion that toe and there are no neurovascular changes in the foot. There is no streaking of the foot and no dorsal foot swelling. Neuro: Awake, alert, oriented. Cranial nerves II through XII unremarkable. Cerebellum unremarkable. Motor and sensory unremarkable throughout. Exam nonfocal. Diagnostics: [] Therapeutics: Motrin Ever the patient x-ray of his toe but as there has been no trauma and she had an x-ray of the foot to 6 days ago she defers that at this time. I discussed with the patient again, as I have on the last several visits to the ER, but she needs to connect with primary care and not use the ER with such great frequency for such minor issues. I again pointed out to her her multiple ER visits including this being the third visit in the last 4 days. She states understanding and says that she is trying to get him at the clinic. She states she will contact Dr. Salcedo and see her again in the clinic for her toe Impression: Left second toe pain Definitive disposition and diagnosis as appropriate pending reevaluation and review of above. Allergies/ADRs: Allergies metronidazole [From Flagyl] Allergy (Verified 12/08/16 19:42) Vomiting Home Medications: Ambulatory Orders QUEtiapine [SEROquel] 150 mg PO DAILY 12/03/16 [Confirmed 12/08/16] traZODone 50 mg PO ONETIME 12/03/16 [Confirmed 12/08/16] Past Medical History - Past Health History Medical/Surgical History: Denies Medical/Surgical History HEENT History: Reports: None Cardiovascular History: Reports: None Respiratory History: Reports: Asthma Gastrointestinal History: Reports: None Genitourinary History: Reports: None CLIN ASST History: Reports: None Musculoskeletal History: Reports: None Neurological History: Reports: Seizure Psychiatric History: Reports: ADHD, Anxiety, Bipolar, Depression Endocrine/Metabolic History: Reports: Obesity/BMI 30+ Hematologic History: Reports: None Immunologic History: Reports: None Oncologic (Cancer) History: Reports: None Dermatologic History: Reports: None - Infectious Disease History Infectious Disease History: Reports: None - Past Surgical History Head Surgeries/Procedures: Reports: None HEENT Surgical History: Reports: Tonsillectomy GI Surgical History: Reports: Appendectomy, Cholecystectomy Musculoskeletal Surgical History: Reports: Arthroscopic knee Social & Family History - Family History Family Medical History: Noncontributory Cardiac: Reports: Heart failure, Hypertension, [place] Endocrine/Metabolic: Reports: Diabetes, type II Oncologic: Reports: Bone, Breast - Tobacco Use Smoking Status *Q: Heavy Tobacco Smoker Years of Tobacco use: 17 Packs/Tins Daily: 3 Used Tobacco, but Quit: No Second Hand Smoke Exposure: No - Caffeine Use Caffeine Use: Reports: None Caffeine Use Comment: 1-2 daily - Recreational Drug Use Recreational Drug Use: No Drug Use in Last 12 Months: No Review of Systems - Review of Systems Review Of Systems: ROS reveals no pertinent complaints other than HPI. Trauma Exam - Physical Exam Exam: See Below (See dictation) Course - Vital Signs Last Recorded V/S: Last Vital Signs Temp 36.3 C 12/10/16 06:10 Pulse 94 12/10/16 06:10 Resp 19 12/10/16 06:10 BP 123/73 12/10/16 06:10 Pulse Ox 97 12/10/16 06:10 - Orders/Labs/Meds Orders: Active Orders 24 hr Category Date Time Status Ibuprofen [Motrin] Med 12/10/16 06:17 Once 600 mg PO ONETIME ONE Departure - Departure Time of Disposition: 06:23 Disposition: Home, Self-Care 01 Condition: good Clinical Impression: Toe pain, left Forms: ED Department Discharge Additional Instructions: The following information is given to patients seen in the emergency department who are being discharged to home. This information is to outline your options for follow-up care. We provide all patients seen in our emergency department with a follow-up referral. The need for follow-up, as well as the timing and circumstances, are variable depending upon the specifics of your emergency department visit. If you don't have a primary care physician on staff, we will provide you with a referral. We always advise you to contact your personal physician following an emergency department visit to inform them of the circumstance of the visit and for follow-up with them and/or the need for any referrals to a consulting specialist. The emergency department will also refer you to a specialist when appropriate. This referral assures that you have the opportunity for followup care with a specialist. All of these measure are taken in an effort to provide you with optimal care, which includes your followup. Under all circumstances we always encourage you to contact your private physician who remains a resource for coordinating your care. When calling for followup care, please make the office aware that this follow-up is from your recent emergency room visit. If for any reason you are refused follow-up, please contact the [facility] emergency department at and ask to speak to the emergency department charge nurse. [facility]- Podiatry [address] [place] [id number] Fax: [phone] [facility] Primary care- Internal Medicine and Family [facility] [address] [place] [id number] Ice the area and elevate and wear the sleeve your given by the production repairer. Take [id number] Tylenol or ibuprofen and please call for followup with a production repairer. Please also call and schedule clinic appointment for your other medical issues and problems. - My Orders Last 24 Hours: My Active Orders 12/10/16 06:17 Ibuprofen [Motrin] 600 mg PO ONETIME ONE - Assessment/Plan Last 24 Hours: My Active Orders 12/10/16 06:17 Ibuprofen [Motrin] 600 mg PO ONETIME ONE
[2016-12-10 06:42] VITALS: BP 108/70
== END 2016-12-10 06:42 | disposition home or self-care (01) ==
LOC: MW.ED 06:03
DX: M79.675 Pain in left toe(s) (principal); F32.9 Major depressive disorder, single episode, unspecified; F31.9 Bipolar disorder, unspecified; F41.9 Anxiety disorder, unspecified; F17.210 Nicotine dependence, cigarettes, uncomplicated; E66.9 Obesity, unspecified; Z68.43 Body mass index [BMI] 50.0-59.9, adult; Z90.49 Acquired absence of other specified parts of digestive tract; Z88.8 Allergy status to other drugs, medicaments and biological substances; Z79.899 Other long term (current) drug therapy; Z98.890 Other specified postprocedural states
CPT/HCPCS: 99283; A9270; 99282

== ENCOUNTER 2016-12-14 18:27 | Emergency (ER) | payer MEDICARE, MEDICAID ==
--- NOTE | 2016-12-14 19:19 | EDM.PDOC ---
[id number]: PT HAS BODY PAIN Time Seen by Provider: 12/14/16 19:05 Source of Information: Reports: Patient History Limitations: Reports: No limitations - History of Present Illness INITIAL COMMENTS - FREE TEXT/NARRATIVE: History of present illness: [] Review of systems: 31-year-old female well-known to our emergency medicine service for frequent visits for minor complaints now presents emergent [facility] complaining of low back pain. Patient is morbidly obese and states she does get chronic intermittent back pain which she has now and is typical for her . Patient states it's worse with palpation and movement. She has normal bowel and bladder habits. No difficulty with strength sensation and gait right low back is area of soreness is and denies possibility of as she is recently had this checked. HISTORY AND PHYSICAL: As per history of present illness and below otherwise all systems reviewed and negative. Past medical history: As per history of present illness and as reviewed below otherwise noncontributory. Surgical history: As per history of present illness and as reviewed below otherwise noncontributory. Social history: No reported history of drug or alcohol abuse. Family history: As per history of present illness and as reviewed below otherwise noncontributory. Physical exam: HEENT: Atraumatic, normocephalic, pupils reactive, negative for conjunctival pallor or scleral icterus, mucous membranes moist, throat clear, neck supple, nontender, trachea midline. Lungs: Clear to auscultation, breath sounds equal bilaterally, chest nontender. Heart: S1S2, regular, negative for clicks, rubs, or JVD. Abdomen: Soft, nondistended, nontender. Negative for masses or hepatosplenomegaly. Negative for costovertebral tenderness. Pelvis: Stable nontender. Genitourinary: Deferred. Rectal: Deferred. Extremities: Atraumatic, negative for cords or calf pain. Neurovascular unremarkable. Neuro: Awake, alert, oriented. Cranial nerves II through XII unremarkable. Cerebellum unremarkable. Motor and sensory unremarkable throughout. Exam nonfocal. Diagnostics: [] Therapeutics: [] Impression: [] Plan: [] Definitive disposition and diagnosis as appropriate pending reevaluation and review of above. 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 Musculoskeletal History: Reports: None Neurological History: Reports: Seizure Psychiatric History: Reports: ADHD, Anxiety, Bipolar, Depression Endocrine/Metabolic History: Reports: Obesity/BMI 30+ Hematologic History: Reports: None Immunologic History: Reports: None Oncologic (Cancer) History: Reports: None Dermatologic History: Reports: None - Infectious Disease History Infectious Disease History: Reports: None - Past Surgical History Head Surgeries/Procedures: Reports: None HEENT Surgical History: Reports: Tonsillectomy GI Surgical History: Reports: Appendectomy, Cholecystectomy Musculoskeletal Surgical History: Reports: Arthroscopic knee Social & Family History - Family History Family Medical History: Noncontributory Cardiac: Reports: Heart failure, Hypertension, [place] Endocrine/Metabolic: Reports: Diabetes, type II Oncologic: Reports: Bone, Breast - Tobacco Use Smoking Status *Q: Current Every Day Smoker Years of Tobacco use: 17 Packs/Tins Daily: 3 Used Tobacco, but Quit: No Second Hand Smoke Exposure: No - Caffeine Use Caffeine Use: Reports: None Caffeine Use Comment: 1-2 daily - Recreational Drug Use Recreational Drug Use: No Drug Use in Last 12 Months: No ED ROS GENERAL - Review of Systems Review Of Systems: See Below (Per history of present illness) ED EXAM,LOWER BACK PAIN/INJURY - Physical Exam Exam: See Below (Per history of present illness) Course - Vital Signs Last Recorded V/S: Last Vital Signs Temp 37.0 C 12/14/16 18:59 Pulse 98 12/14/16 19:36 Resp 18 12/14/16 19:36 BP 125/76 12/14/16 19:36 Pulse Ox 99 12/14/16 19:36 - Orders/Labs/Meds Meds: Medications Discontinued Medications Generic Name Dose Route Start Last Admin Trade Name Freq PRN Reason Stop Dose Admin Ibuprofen 800 mg 12/14/16 19:14 12/14/16 19:30 Motrin PO 12/14/16 19:15 800 mg ONETIME ONE Administration Departure - Departure Time of Disposition: 19:18 Disposition: Home, Self-Care 01 Condition: good Clinical Impression: Low back pain, Lumbar strain, Morbid obesity Instructions: Back Pain, Adult, [id number] Referrals: PCP,None [Primary Care Provider] - Forms: ED Department Discharge Additional Instructions: Have musculoskeletal low back pain. Take ibuprofen as needed. Use warm compresses, soaks and do gentle stretching exercises. Work on losing some weight to optimize your long-term health and follow up with your Dr. tomorrow.
[2016-12-14] MEDS: Ibuprofen 800 MG Tab PO ONE (19:30)
[2016-12-14 19:38] VITALS: BP 125/76
== END 2016-12-14 19:38 | disposition home or self-care (01) ==
LOC: MW.ED 18:27
DX: M54.5 Low back pain (principal); S39.012A Strain of muscle, fascia and tendon of lower back, initial encounter; F41.9 Anxiety disorder, unspecified; F31.9 Bipolar disorder, unspecified; F32.9 Major depressive disorder, single episode, unspecified; F17.210 Nicotine dependence, cigarettes, uncomplicated; E66.01 Morbid (severe) obesity due to excess calories; Z68.43 Body mass index [BMI] 50.0-59.9, adult; Z79.899 Other long term (current) drug therapy; Z88.8 Allergy status to other drugs, medicaments and biological substances; Z90.49 Acquired absence of other specified parts of digestive tract; Z98.890 Other specified postprocedural states
CPT/HCPCS: 99282; A9270; 99283

== ENCOUNTER → 2016-12-15 | Outpatient (CLI) | payer MEDICARE, MEDICAID | LOC: MW.CHFP 09:49 | PROVIDERS: ATTEND Emergency Medicine | DX: N91.2 Amenorrhea, unspecified (principal); S29.012A Strain of muscle and tendon of back wall of thorax, initial encounter; R35.0 Frequency of micturition | CPT/HCPCS: 81025; G0463 ==

== ENCOUNTER 2016-12-29 17:36 | Emergency (ER) | payer MEDICARE, MEDICAID ==
--- NOTE | 2016-12-29 17:55 | EDM.PDOC ---
ED HPI Trauma - General Chief Complaint: Lower Extremity Injury/Pain Stated Complaint: PT HURT RT LEG Time Seen by Provider: 12/29/16 17:55 Source: Reports: Patient History Limitations: Reports: No limitations - History of Present Illness INITIAL COMMENTS - FREE TEXT/NARRATIVE: HISTORY AND PHYSICAL: History of present illness: [Patient comes to the emergency room via EMS complaining of left leg weakness and not feeling well for the past 2 days. Denies upper extremity weakness. She' s not had any falls or injuries. Denies fever and chills. She has a mild pain in her left mid thigh but has not had any swelling. She denies low back pain and body aches. She's not taken any medications for her symptoms. She has not had any water today. She's been drinking some milk and eat pizza rolls around 2 PM today. Questions if she could be . Her LMP September 14, 2016. Does not use contraception. She desires . Patient accompanied her fianc to this emergency room last evening and appeared healthy and well. She voiced no complaints or concerns while she was at his bedside.] Review of systems: As per history of present illness and below otherwise all systems reviewed and negative. Past medical history: As per history of present illness and as reviewed below otherwise noncontributory. Surgical history: As per history of present illness and as reviewed below otherwise noncontributory. Social history: No reported history of drug or alcohol abuse. Family history: As per history of present illness and as reviewed below otherwise noncontributory. Physical exam: HEENT: Atraumatic, normocephalic. PERRLA. Conjunctiva clear. Oral mucous membranes are pink and moist no tonsillar swelling erythema or exudate. Lungs: Clear to auscultation, breath sounds equal bilaterally. Heart: S1S2, regular rate and rhythm.. Abdomen: Obese, Soft, nondistended, nontender. Negative for masses or hepatosplenomegaly. Negative for costovertebral tenderness. Pelvis: Stable nontender. Genitourinary: Deferred. Rectal: Deferred. Extremities: Atraumatic, without swelling and deformity. Her gait is normal. No weakness to extremities is appreciated. Dorsiflexion and plantar flexion is 5 out of 5 and equal bilaterally. No deficits to eversion and and inversion of feet. 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 negative for cords or calf pain. Neurovascular unremarkable. Has full ROM to lower extremities. Full ROM with flexion, extension, lateral flexion and rotation without pain or difficulty. Neuro: Awake, alert, oriented. Cranial nerves II through XII unremarkable. Motor and sensory unremarkable throughout. Exam nonfocal. Diagnostics: [UA and urine ] Impression: [Viral syndrome Weakness due to viral syndrome amennorhea] Plan: [Discussed with patient that her urinalysis was normal and her test is negative. Her exam findings are within normal limits and no deficits are noted. Discussed that she is likely suffering from a viral syndrome. Recommend that she push fluids (water), get plenty of rest, Tylenol or ibuprofen as needed for discomfort or fever. Patient verbalized understanding. all questions are answered and concerns are addressed. Followup with Dr. Ordonez.] Definitive disposition and diagnosis as appropriate pending reevaluation and review of above. 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 Musculoskeletal History: Reports: None Neurological History: Reports: Seizure Psychiatric History: Reports: ADHD, Anxiety, Bipolar, Depression Endocrine/Metabolic History: Reports: Obesity/BMI 30+ Hematologic History: Reports: None Immunologic History: Reports: None Oncologic (Cancer) History: Reports: None Dermatologic History: Reports: None - Infectious Disease History Infectious Disease History: Reports: None - Past Surgical History Head Surgeries/Procedures: Reports: None Cardiovascular Surgical History: Reports: None Respiratory Surgical History: Reports: None Female Surgical History: Reports: None Endocrine Surgical History: Reports: None Neurological Surgical History: Reports: None Other Musculoskeletal Surgeries/Procedures:: Left knee surgery, left 5th toe suture Oncologic Surgical History: Reports: None Dermatological Surgical History: Reports: None Social & Family History - Family History Family Medical History: Noncontributory Cardiac: Reports: Heart failure, Hypertension, [place] Endocrine/Metabolic: Reports: Diabetes, type II Oncologic: Reports: Bone, Breast - Tobacco Use Smoking Status *Q: Current Every Day Smoker Years of Tobacco use: 17 Packs/Tins Daily: 3 Used Tobacco, but Quit: No Second Hand Smoke Exposure: No - Caffeine Use Caffeine Use: Reports: None Caffeine Use Comment: 1-2 daily - Recreational Drug Use Recreational Drug Use: No Drug Use in Last 12 Months: No Review of Systems - Review of Systems Review Of Systems: ROS reveals no pertinent complaints other than HPI. Trauma Exam - Physical Exam Exam: See Below Course - Vital Signs Last Recorded V/S: Last Vital Signs Temp 98.5 F 12/29/16 17:52 Pulse 102 H 12/29/16 17:52 Resp 18 12/29/16 17:52 BP 128/69 12/29/16 17:52 Pulse Ox 97 12/29/16 17:52 - Orders/Labs/Meds Labs: Laboratory Tests 12/29/16 12/29/16 Range/Units 18:00 18:00 Urine Color YELLOW Urine Appearance SLT CLOUDY Urine pH 6.0 (5.0-8.0) Ur Specific [place] 1.025 (1.001-1.035) Urine Protein NEGATIVE (NEGATIVE) mg/dL Urine Glucose (UA) NEGATIVE (NEGATIVE) mg/dL Urine Ketones NEGATIVE (NEGATIVE) mg/dL Urine Occult Blood NEGATIVE (NEGATIVE) Urine Nitrite NEGATIVE (NEGATIVE) Urine Bilirubin NEGATIVE (NEGATIVE) Urine Urobilinogen 0.2 (<2.0) EU/dL Ur Leukocyte Esterase SMALL (NEGATIVE) Urine RBC 0-2 (0-2/HPF) Urine WBC 1-3 (0-5/HPF) Ur Epithelial Cells MODERATE (NONE-FEW) Amorphous Sediment MODERATE (NEGATIVE) Urine Bacteria FEW (NEGATIVE) Urine HCG, Qual NEGATIVE (NEGATIVE) Departure - Departure Time of Disposition: 18:20 Disposition: Home, Self-Care 01 Condition: good Clinical Impression: Viral illness Referrals: PCP,None [Primary Care Provider] - Forms: ED Department Discharge Additional Instructions: The following information is given to patients seen in the emergency department who are being discharged to home. This information is to outline your options for follow-up care. We provide all patients seen in our emergency department with a follow-up referral. The need for follow-up, as well as the timing and circumstances, are variable depending upon the specifics of your emergency department visit. If you don't have a primary care physician on staff, we will provide you with a referral. We always advise you to contact your personal physician following an emergency department visit to inform them of the circumstance of the visit and for follow-up with them and/or the need for any referrals to a consulting specialist. The emergency department will also refer you to a specialist when appropriate. This referral assures that you have the opportunity for follow-up care with a specialist. All of these measure are taken in an effort to provide you with optimal care, which includes your follow-up. Under all circumstances we always encourage you to contact your private physician who remains a resource for coordinating your care. When calling for follow-up care, please make the office aware that this follow-up is from your recent emergency room visit. If for any reason you are refused follow-up, please contact the [facility] emergency department at and asked to speak to the emergency department charge nurse. [facility] Primary [facility] [address] [place] [id number] You've been diagnosed with a viral syndrome. This should resolve in a couple of days. You need to drink plenty of fluids and get plenty of rest. Take Tylenol or ibuprofen as needed for body aches or fever. Your urinalysis is normal and test is negative. Return to ER as needed and as discussed.
[2016-12-29 19:19] VITALS: BP 139/59
== END 2016-12-29 19:10 | disposition home or self-care (01) ==
LOC: MW.ED 17:36
DX: B34.9 Viral infection, unspecified (principal); R53.1 Weakness; F41.9 Anxiety disorder, unspecified; F31.9 Bipolar disorder, unspecified; F32.9 Major depressive disorder, single episode, unspecified; F17.210 Nicotine dependence, cigarettes, uncomplicated; E66.9 Obesity, unspecified; Z68.45 Body mass index [BMI] 70 or greater, adult; Z79.899 Other long term (current) drug therapy; Z88.8 Allergy status to other drugs, medicaments and biological substances; Z98.890 Other specified postprocedural states
CPT/HCPCS: 81001; 81025; 99283

== ENCOUNTER 2017-01-02 09:00 | Emergency (ER) | payer MEDICARE, MEDICAID ==
--- NOTE | 2017-01-02 10:02 | EDM.PDOC ---
ED HISTORY OF PRESENT ILLNESS - General Chief Complaint: Respiratory Problem Stated Complaint: HARD TIME BREATHING Time Seen by Provider: 01/02/17 09:45 Source of Information: Reports: Patient History Limitations: Reports: No limitations - History of Present Illness INITIAL COMMENTS - FREE TEXT/NARRATIVE: History of present illness: [] Patient arrived by ambulance for nasal congestion and not having a car available. 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 She is followed by Dr. Kowalski, he states he has dressed her medical problems appropriately. He should states that she has nasal congestion and did not know what to do. Review of systems: As per history of present illness and below otherwise all systems reviewed and negative. Past medical history: As per history of present illness and as reviewed below otherwise noncontributory. Surgical history: As per history of present illness and as reviewed below otherwise noncontributory. Social history: No reported history of drug or alcohol abuse. Family history: As per history of present illness and as reviewed below otherwise noncontributory. Physical exam: General: Well developed, well nourished in NAD HEENT: Atraumatic, normocephalic, pupils reactive, negative for conjunctival pallor or scleral icterus, mucous membranes moist, throat clear, neck supple, nontender, trachea midline. Lungs: Clear to auscultation, breath sounds equal bilaterally, chest nontender. Heart: S1S2, regular, negative for clicks, rubs, or JVD. Abdomen: Soft, nondistended, nontender. Negative for masses or hepatosplenomegaly. Negative for costovertebral tenderness. Pelvis: Stable nontender. Genitourinary: Deferred. Rectal: Deferred. Extremities: Atraumatic, negative for cords or calf pain. Neurovascular unremarkable. Neuro: Awake, alert, oriented. Cranial nerves II through XII unremarkable. Cerebellum unremarkable. Motor and sensory unremarkable throughout. Exam nonfocal. Diagnostics: [] None Therapeutics: [] None Impression: [] Nasal congestion Plan: [] [id number] decongestants and followup with your primary care physician. Definitive disposition and diagnosis as appropriate pending reevaluation and review of above. 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 Musculoskeletal History: Reports: None Neurological History: Reports: Seizure Psychiatric History: Reports: ADHD, Anxiety, Bipolar, Depression Endocrine/Metabolic History: Reports: Obesity/BMI 30+ Hematologic History: Reports: None Immunologic History: Reports: None Oncologic (Cancer) History: Reports: None Dermatologic History: Reports: None - Infectious Disease History Infectious Disease History: Reports: Chicken pox - Past Surgical History Head Surgeries/Procedures: Reports: None Cardiovascular Surgical History: Reports: None Respiratory Surgical History: Reports: None Female Surgical History: Reports: None Endocrine Surgical History: Reports: None Neurological Surgical History: Reports: None Other Musculoskeletal Surgeries/Procedures:: Left knee surgery, left 5th toe suture Oncologic Surgical History: Reports: None Dermatological Surgical History: Reports: None Social & Family History - Family History Family Medical History: Noncontributory Cardiac: Reports: Heart failure, Hypertension, [place] Endocrine/Metabolic: Reports: Diabetes, type II Oncologic: Reports: Bone, Breast - Tobacco Use Smoking Status *Q: Current Every Day Smoker Years of Tobacco use: 17 Packs/Tins Daily: 0.5 Used Tobacco, but Quit: No Second Hand Smoke Exposure: No - Caffeine Use Caffeine Use: Reports: None Caffeine Use Comment: 1-2 daily - Recreational Drug Use Recreational Drug Use: No Drug Use in Last 12 Months: No ED ROS GENERAL - Review of Systems Review Of Systems: See Below (History of present illness) ED EXAM, GENERAL - Physical Exam Exam: See Below (See history of present illness) Course - Vital Signs Last Recorded V/S: Last Vital Signs Temp 36.3 C 01/02/17 09:08 Pulse 103 H 01/02/17 09:08 Resp 14 01/02/17 09:08 BP 122/87 01/02/17 09:08 Pulse Ox 97 01/02/17 09:08 - Orders/Labs/Meds Orders: Active Orders 24 hr Category Date Time Status EKG Documentation Completion [RC] STAT Care 01/02/17 09:10 Active Departure - Departure Time of Disposition: 09:55 Disposition: Home, Self-Care 01 Condition: good Clinical Impression: Encounter for medical screening examination Forms: ED Department Discharge Additional Instructions: The following information is given to patients seen in the emergency department who are being discharged to home. This information is to outline your options for follow-up care. We provide all patients seen in our emergency department with a follow-up referral. The need for follow-up, as well as the timing and circumstances, are variable depending upon the specifics of your emergency department visit. If you don't have a primary care physician on staff, we will provide you with a referral. We always advise you to contact your personal physician following an emergency department visit to inform them of the circumstance of the visit and for follow-up with them and/or the need for any referrals to a consulting specialist. The emergency department will also refer you to a specialist when appropriate. This referral assures that you have the opportunity for follow-up care with a specialist. All of these measure are taken in an effort to provide you with optimal care, which includes your follow-up. Under all circumstances we always encourage you to contact your private physician who remains a resource for coordinating your care. When calling for follow-up care, please make the office aware that this follow-up is from your recent emergency room visit. If for any reason you are refused follow-up, please contact the [facility] Emergency Department at and asked to speak to the emergency department charge nurse. [facility] Primary Care [address] [place] [phone] - My Orders Last 24 Hours: My Active Orders 01/02/17 09:10 EKG Documentation Completion [RC] STAT - Assessment/Plan Last 24 Hours: My Active Orders 01/02/17 09:10 EKG Documentation Completion [RC] STAT
[2017-01-02 10:24] VITALS: BP 125/84
== END 2017-01-02 10:04 | disposition home or self-care (01) ==
LOC: MW.ED 09:00
DX: Z13.9 Encounter for screening, unspecified (principal); F41.9 Anxiety disorder, unspecified; F17.210 Nicotine dependence, cigarettes, uncomplicated; F32.9 Major depressive disorder, single episode, unspecified; F31.9 Bipolar disorder, unspecified; E66.9 Obesity, unspecified; Z68.43 Body mass index [BMI] 50.0-59.9, adult; Z98.890 Other specified postprocedural states; Z88.8 Allergy status to other drugs, medicaments and biological substances; Z79.899 Other long term (current) drug therapy
CPT/HCPCS: 93005; 99281; 99285-25

== ENCOUNTER → 2017-01-03 | Outpatient (CLI) | payer MEDICARE, MEDICAID ==
--- NOTE | 2017-01-05 17:33 | NM ---
EXAM DATE: 01/03/17 PATIENT'S AGE: 31 Addendum: Additional imaging was obtained at rest following the administration of 27.5 mCi of technetium 99 M labeled sestamibi. Findings/impression: The previously demonstrated defect along the anterior wall is present on the rest imaging however is more pronounced during stress, mild anterior wall ischemia is not excluded. The ejection fraction at rest is 66% and wall motion appears normal. EXAMINATION: Nuclear medicine myocardial perfusion study HISTORY: Chest pain. PROCEDURE: Following intravenous administration of 0.4 mg of Lexiscan and 27.5 mCi of technetium 99m sestamibi, stress and rest SPECT images including gating imaging was performed. FINDINGS: Stress and rest myocardial SPECT images demonstrates moderately decreased perfusion along the anterior wall to the apex, reviewing source imaging this likely represents breast attenuation artifact. Review of gated images demonstrates normal wall motion, contractility and wall thickening. The left ventricular ejection fraction is 60 %. The left ventricular chamber size is normal. IMPRESSION: 1. Most likely breast attenuation defect along the anterior wall, however given the degree correlation with rest imaging is recommended. 2. Normal ventricular chamber size and function with ejection fraction of 60 %. MTDD
== END | disposition home or self-care (01) ==
LOC: MW.NM 07:59
PROVIDERS: ATTEND Internal Medicine
DX: R07.89 Other chest pain (principal); R56.9 Unspecified convulsions
CPT/HCPCS: 78451; 99204; A9500

== ENCOUNTER → 2017-01-10 | Outpatient (CLI) | payer MEDICARE, MEDICAID | LOC: MW.CHORTHO 08:00 | PROVIDERS: ATTEND Physician Assistant | DX: M17.12 Unilateral primary osteoarthritis, left knee (principal); M25.562 Pain in left knee | CPT/HCPCS: 20610; G0463; J1040 ==

== ENCOUNTER 2017-01-11 11:54 | Emergency (ER) | payer MEDICARE, MEDICAID ==
[2017-01-11] MEDS ORDERED: Ketorolac 60 MG/2 ML SDV IM ONE (12:00)
[2017-01-11 12:04] VITALS: BP 134/65
--- NOTE | 2017-01-11 12:08 | EDM.PDOC ---
ED HPI Trauma - General Chief Complaint: Lower Extremity Injury/Pain Stated Complaint: AMBULANCE Time Seen by Provider: 01/11/17 11:55 - History of Present Illness INITIAL COMMENTS - FREE TEXT/NARRATIVE: HISTORY AND PHYSICAL: History of present illness: The patient is a 31-year-old female who has a history of multiple ED visits over the last several months and presents via EMS this afternoon stating that her left ankle "gave out", rolled and she fell to the ground. She complains of pain to her left ankle right knee and her neck. She did hit the left side of her head but she did not pass out or black out. She has no chest pain shortness of breath abdominal pain vomiting and no upper extremity complaints. She has no back pain. Earlier she was in her usual state of health without issues. Review of systems: As per history of present illness and below otherwise all systems reviewed and negative. Past medical history: As per history of present illness and as reviewed below otherwise noncontributory. Surgical history: As per history of present illness and as reviewed below otherwise noncontributory. Social history: No reported history of drug or alcohol abuse. Family history: As per history of present illness and as reviewed below otherwise noncontributory. Physical exam: General: Well-developed overweight female who is nontoxic in lower right side backboard and c-collar. The backboard was removed but c-collar was maintained throughout the course of my exam. HEENT: Atraumatic, normocephalic, there is no evidence of any soft tissue injury or tenderness of the face and there is no scalp tenderness or soft tissue injury appreciated, pupils reactive, negative for conjunctival pallor or scleral icterus, mucous membranes moist, throat clear, neck supple, nontender, trachea midline. There is diffuse cervical spine tenderness without any one focal area but there are no step-offs or deformities. C-collar was maintained. Lungs: Clear to auscultation, breath sounds equal bilaterally, chest nontender. Heart: S1S2, regular rate and rhythm no overt murmurs Abdomen: Soft, nondistended, nontender. NABS. Pelvis: Stable nontender. No lateral hip tenderness on palpation Genitourinary: Deferred. Rectal: Deferred. Extremities: Atraumatic except the right knee where there is a superficial abrasion and some soft tissue tenderness but no palpable bony deformities ecchymosis or joint effusion there is no distal or proximal bony tenderness or discomfort. At the left ankle with the patient states she has pain there is no soft tissue swelling ecchymosis or palpable bony deformities. Remainder of the extremities are without tenderness or deformities. The legs are, negative for cords or calf pain. Neurovascular unremarkable. Neuro: Awake, alert, oriented. Motor and sensory unremarkable throughout. Exam nonfocal. Back: There are no midline step-offs tenderness defects of the thoracic or lumbar spine no posterior rib or posterior pelvis tenderness Diagnostics: CT scan of the cervical spine, left ankle and right knee x-rays Therapeutics: Toradol Impression: Left ankle contusion right knee contusion cervical sprain status post fall stable Definitive disposition and diagnosis as appropriate pending reevaluation and review of above. 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 Musculoskeletal History: Reports: None Neurological History: Reports: Seizure Psychiatric History: Reports: ADHD, Anxiety, Bipolar, Depression Endocrine/Metabolic History: Reports: Obesity/BMI 30+ Hematologic History: Reports: None Immunologic History: Reports: None Oncologic (Cancer) History: Reports: None Dermatologic History: Reports: None - Infectious Disease History Infectious Disease History: Reports: Chicken pox - Past Surgical History Head Surgeries/Procedures: Reports: None Cardiovascular Surgical History: Reports: None Respiratory Surgical History: Reports: None Female Surgical History: Reports: None Endocrine Surgical History: Reports: None Neurological Surgical History: Reports: None Other Musculoskeletal Surgeries/Procedures:: Left knee surgery, left 5th toe suture Oncologic Surgical History: Reports: None Dermatological Surgical History: Reports: None Social & Family History - Family History Family Medical History: Noncontributory Cardiac: Reports: Heart failure, Hypertension, [place] Endocrine/Metabolic: Reports: Diabetes, type II Oncologic: Reports: Bone, Breast - Tobacco Use Smoking Status *Q: Current Every Day Smoker Years of Tobacco use: 17 Packs/Tins Daily: 0.5 Used Tobacco, but Quit: No Second Hand Smoke Exposure: No - Caffeine Use Caffeine Use: Reports: None Caffeine Use Comment: 1-2 daily - Recreational Drug Use Recreational Drug Use: No Drug Use in Last 12 Months: No Review of Systems - Review of Systems Review Of Systems: ROS reveals no pertinent complaints other than HPI. Trauma Exam - Physical Exam Exam: See Below (See dictation) Course - Vital Signs Last Recorded V/S: Last Vital Signs Temp 36.1 C 01/11/17 11:58 Pulse 104 H 01/11/17 11:58 Resp 18 01/11/17 11:58 BP 134/65 01/11/17 11:58 Pulse Ox 94 L 01/11/17 11:58 - Orders/Labs/Meds Orders: Active Orders 24 hr Category Date Time Status Cervical Spine wo Cont [CT] Stat Exams 01/11/17 11:57 Taken Knee 3V Rt [CR] Stat Exams 01/11/17 11:59 Taken Meds: Medications Discontinued Medications Generic Name Dose Route Start Last Admin Trade Name Terrellq PRN Reason Stop Dose Admin Ketorolac Tromethamine 60 mg 01/11/17 12:00 01/11/17 12:45 Toradol IM 01/11/17 12:01 60 mg ONETIME ONE Administration Departure - Departure Time of Disposition: 14:08 Disposition: Home, Self-Care 01 Condition: good Clinical Impression: Knee contusion Qualifiers: Encounter type: initial encounter Laterality: right Qualified Code(s): S80.01XA - Contusion of right knee, initial encounter Ankle contusion Qualifiers: Encounter type: initial encounter Laterality: left Qualified Code(s): S90.02XA - Contusion of left ankle, initial encounter Fall Qualifiers: Encounter type: subsequent encounter Qualified Code(s): W19.XXXD - Unspecified fall, subsequent encounter Cervical strain Qualifiers: Encounter type: initial encounter Qualified Code(s): S16.1XXA - Strain of muscle, fascia and tendon at neck level, initial encounter Forms: ED Department Discharge Additional Instructions: The following information is given to patients seen in the emergency department who are being discharged to home. This information is to outline your options for follow-up care. We provide all patients seen in our emergency department with a follow-up referral. The need for follow-up, as well as the timing and circumstances, are variable depending upon the specifics of your emergency department visit. If you don't have a primary care physician on staff, we will provide you with a referral. We always advise you to contact your personal physician following an emergency department visit to inform them of the circumstance of the visit and for follow-up with them and/or the need for any referrals to a consulting specialist. The emergency department will also refer you to a specialist when appropriate. This referral assures that you have the opportunity for followup care with a specialist. All of these measure are taken in an effort to provide you with optimal care, which includes your followup. Under all circumstances we always encourage you to contact your private physician who remains a resource for coordinating your care. When calling for followup care, please make the office aware that this follow-up is from your recent emergency room visit. If for any reason you are refused follow-up, please contact the [facility] emergency department at and ask to speak to the emergency department charge nurse. [facility] Primary care- Internal [place] [address] Use ice to all areas of swelling and pain and use [id number] Tylenol/ ibuprofen as needed. Expect aches and pains for the next several days and please call and followup with her clinic physician. Return to ER as needed and discussed - My Orders Last 24 Hours: My Active Orders 01/11/17 11:57 Cervical Spine wo Cont [CT] Stat 01/11/17 11:59 Knee 3V Rt [CR] Stat - Assessment/Plan Last 24 Hours: My Active Orders 01/11/17 11:57 Cervical Spine wo Cont [CT] Stat 01/11/17 11:59 Knee 3V Rt [CR] Stat
--- NOTE | 2017-01-11 13:23 | CR ---
EXAMINATION: Left ankle HISTORY: Pain COMPARISON: 11/05/2016 TECHNIQUE: 3 views FINDINGS: There is no fracture or acute osseous abnormality demonstrated. Bone mineralization, ankle mortise and joint spaces appear grossly preserved. Well-corticated ossific densities are noted dist al to the lateral malleolus, unchanged and likely secondary to an old injury. No notable soft tissue swelling demonstrated. Partially visualized metatarsal hardware is present. IMPRESSION: No acute osseous abnormality identified.
--- NOTE | 2017-01-11 14:50 | CT ---
EXAM DATE: 01/11/17 PATIENT'S AGE: 31 Patient: JEAN-CLAUDE AMEZCUA Facility: [place], [place] Site . Site : 1985 Study: CT Spine Cervical [id number]/19/2017 12:26:17 PM Ordering Physician: Jerry Joel Final Report: HISTORY: Fall, pain center of neck. TECHNIQUE: Cervical spine was scanned in the axial plane without IV contrast. Reconstructed bone windows obtained as well sagittal and coronal reconstructions. FINDINGS: Prevertebral soft tissues are normal. The thyroid is unremarkable. Lung apices are well aerated. There is reversal of lordosis within the cervical spine. No fracture is identified. No subluxation is seen. IMPRESSION: 1. Reversal of the normal lordosis within the cervical spine. This may be a result of muscle spasm versus positioning. 2. No acute fracture or traumatic subluxation. Dictated by Cheryl Fish MD @ 01/11/2017 1:20:15 PM Dictated by: Cheryl Fish MD @ 01/11/2017 13:20:22 (Electronic Signature) Report Signed by Proxy and Original Signed Document filed in the Medical Record. KARIS
--- NOTE | 2017-01-11 14:51 | CR ---
EXAM DATE: 01/11/17 PATIENT'S AGE: 31 Patient: JEAN-CLAUDE AMEZCUA Facility: [place], [place] Site . Site : 1985 Study: XRay Knee Right [id number]/19/2017 12:31:30 PM Ordering Physician: Jerry Joel Final Report: HISTORY: Fall. FINDINGS: Three views of the right knee are compared with 06 November 2016. Joint spaces are maintained. No joint effusion, fracture or dislocation is seen. IMPRESSION: No acute bony abnormality. Dictated by Cheryl Fish MD @ 01/11/2017 12:55:22 PM Dictated by: Cheryl Fish MD @ 01/11/2017 12:55:27 (Electronic Signature) Report Signed by Proxy and Original Signed Document filed in the Medical Record. MTDD
== END 2017-01-11 14:29 | disposition home or self-care (01) ==
LOC: MW.ED 11:54
DX: S16.1XXA Strain of muscle, fascia and tendon at neck level, initial encounter (principal); S90.02XA Contusion of left ankle, initial encounter; S80.01XA Contusion of right knee, initial encounter; J45.909 Unspecified asthma, uncomplicated; F41.9 Anxiety disorder, unspecified; F31.9 Bipolar disorder, unspecified; E66.9 Obesity, unspecified; Z68.30 Body mass index [BMI] 30.0-30.9, adult; Z98.890 Other specified postprocedural states; F17.210 Nicotine dependence, cigarettes, uncomplicated; Z79.899 Other long term (current) drug therapy; Z88.1 Allergy status to other antibiotic agents; W19.XXXA Unspecified fall, initial encounter
CPT/HCPCS: 72125; 73562; 73610; 96372; 99284; J1885; 99283

== ENCOUNTER 2017-01-25 23:41 | Emergency (ER) | payer MEDICARE, MEDICAID ==
[2017-01-26] MEDS ORDERED: Alum Hydrox/Mag Hydrox/Simeth 15 ML, Lidocaine 2% 5 ML PO ONE ×2 (00:31)
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
[2017-01-26 01:01] VITALS: BP 140/90
== END 2017-01-26 00:50 | disposition home or self-care (01) ==
LOC: MW.ED 23:41
DX: K29.70 Gastritis, unspecified, without bleeding (principal); F41.9 Anxiety disorder, unspecified; F31.9 Bipolar disorder, unspecified; E66.9 Obesity, unspecified; F17.210 Nicotine dependence, cigarettes, uncomplicated; Z68.30 Body mass index [BMI] 30.0-30.9, adult; Z88.1 Allergy status to other antibiotic agents; Z79.899 Other long term (current) drug therapy; Z98.890 Other specified postprocedural states
CPT/HCPCS: 99284; A9270; 99283

== ENCOUNTER 2017-01-29 22:40 | Emergency (ER) | payer MEDICARE, MEDICAID ==
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
[2017-01-29] MEDS ORDERED: Ondansetron 4 MG Tab.DIS PO ONE (22:57)
[2017-01-29 23:07] VITALS: BP 124/56
== END 2017-01-29 23:10 | disposition home or self-care (01) ==
LOC: MW.ED 22:40
DX: R11.0 Nausea (principal); F90.9 Attention-deficit hyperactivity disorder, unspecified type; F31.9 Bipolar disorder, unspecified; E66.9 Obesity, unspecified; Z90.49 Acquired absence of other specified parts of digestive tract; F17.210 Nicotine dependence, cigarettes, uncomplicated; Z88.1 Allergy status to other antibiotic agents; Z79.899 Other long term (current) drug therapy; Z68.43 Body mass index [BMI] 50.0-59.9, adult
CPT/HCPCS: 99283; A9270

== ENCOUNTER 2017-02-10 | Emergency (ER) | payer MEDICARE, MEDICAID ==
--- NOTE | 2017-02-10 00:12 | EDM.PDOC ---
ED HPI GENERAL MEDICAL PROBLEM - General Chief Complaint: Respiratory Problem Stated Complaint: TROUBLE BREATHING Time Seen by Provider: 02/10/17 00:11 - History of Present Illness INITIAL COMMENTS - FREE TEXT/NARRATIVE: HISTORY AND PHYSICAL: History of present illness: Patient 31-year-old white female presents with dyspnea this occurred and she was walking tonight she denies any other concern upon arrival by paramedics patient's pulse oximetry 98% with no complaint Review of systems: As per history of present illness and below otherwise all systems reviewed and negative. Past medical history: As per history of present illness and as reviewed below otherwise noncontributory. Surgical history: As per history of present illness and as reviewed below otherwise noncontributory. Social history: No reported history of drug or alcohol abuse. Family history: As per history of present illness and as reviewed below otherwise noncontributory. Physical exam: HEENT: Atraumatic, normocephalic, pupils reactive, negative for conjunctival pallor or scleral icterus, mucous membranes moist, throat clear, neck supple, nontender, trachea midline. Lungs: Clear to auscultation, breath sounds equal bilaterally, chest nontender. Heart: S1S2, regular, negative for clicks, rubs, or JVD. Abdomen: Soft, nondistended, nontender. Negative for masses or hepatosplenomegaly. Negative for costovertebral tenderness. Pelvis: Stable nontender. Genitourinary: Deferred. Rectal: Deferred. Extremities: Atraumatic, negative for cords or calf pain. Neurovascular unremarkable. Neuro: Awake, alert, oriented. Cranial nerves II through XII unremarkable. Cerebellum unremarkable. Motor and sensory unremarkable throughout. Exam nonfocal. Diagnostics: Chest x-ray Therapeutics: None Impression: #1 dyspnea resolved Definitive disposition and diagnosis as appropriate pending reevaluation and review of above. Generalized Pain Score (Numeric/FACES): 9 - Related Data Allergies Allergy/AdvReac Type Severity Reaction Status Date / Time metronidazole [From Flagyl] Allergy Vomiting Verified 02/10/17 00:01 Home Meds: Home Meds QUEtiapine [SEROquel] 200 mg PO DAILY 12/03/16 [History] traZODone 50 mg PO ONETIME 12/03/16 [History] lamoTRIgine [Lamotrigine] 200 mg PO BID 01/25/17 [History] Pantoprazole Sodium [Protonix] 40 mg PO DAILY #14 tablet. 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 Musculoskeletal History: Reports: None Neurological History: Reports: Seizure Psychiatric History: Reports: ADHD, Anxiety, Bipolar, Depression Endocrine/Metabolic History: Reports: Obesity/BMI 30+ Hematologic History: Reports: None Immunologic History: Reports: None Oncologic (Cancer) History: Reports: None Dermatologic History: Reports: None - Infectious Disease History Infectious Disease History: Reports: Chicken Pox - Past Surgical History Head Surgeries/Procedures: Reports: None Cardiovascular Surgical History: Reports: None Respiratory Surgical History: Reports: None GI Surgical History: Reports: Appendectomy, Cholecystectomy Female Surgical History: Reports: None Endocrine Surgical History: Reports: None Neurological Surgical History: Reports: None Musculoskeletal Surgical History: Reports: Arthroscopic Knee Oncologic Surgical History: Reports: None Dermatological Surgical History: Reports: None Social & Family History - Family History Family Medical History: Noncontributory Cardiac: Reports: Heart Failure, Hypertension, [place] Endocrine/Metabolic: Reports: Diabetes, type II Oncologic: Reports: Bone, Breast - Tobacco Use Smoking Status *Q: Current Every Day Smoker Years of Tobacco use: 15 Packs/Tins Daily: 1 Used Tobacco, but Quit: No Second Hand Smoke Exposure: No - Caffeine Use Caffeine Use: Reports: Coffee Caffeine Use Comment: 1-2 daily - Recreational Drug Use Recreational Drug Use: No Drug Use in Last 12 Months: No ED ROS GENERAL - Review of Systems Review Of Systems: ROS reveals no pertinent complaints other than HPI. ED EXAM, GENERAL - Physical Exam Exam: See Below (See dictation) Course - Vital Signs Last Recorded V/S: Last Vital Signs Temp 36.1 C 02/10/17 00:04 Pulse 99 02/10/17 00:04 Resp 18 02/10/17 00:04 BP 160/76 H 02/10/17 00:04 Pulse Ox 98 02/10/17 00:04 Departure - Departure Time of Disposition: 00:10 Disposition: Home, Self-Care 01 Condition: good Clinical Impression: Dyspnea - Discharge Information Forms: ED Department Discharge Additional Instructions: The following information is given to patients seen in the emergency department who are being discharged to home. This information is to outline your options for follow-up care. We provide all patients seen in our emergency department with a follow-up referral. The need for follow-up, as well as the timing and circumstances, are variable depending upon the specifics of your emergency department visit. If you don't have a primary care physician on staff, we will provide you with a referral. We always advise you to contact your personal physician following an emergency department visit to inform them of the circumstance of the visit and for follow-up with them and/or the need for any referrals to a consulting specialist. The emergency department will also refer you to a specialist when appropriate. This referral assures that you have the opportunity for followup care with a specialist. All of these measure are taken in an effort to provide you with optimal care, which includes your followup. Under all circumstances we always encourage you to contact your private physician who remains a resource for coordinating your care. When calling for followup care, please make the office aware that this follow-up is from your recent emergency room visit. If for any reason you are refused follow-up, please contact the [facility] emergency department at and asked to speak to the emergency department charge nurse. [facility] [address] [place] [id number] Followup primary medical doctor and/or clinic above is discussed return as needed as discussed
[2017-02-10 00:59] VITALS: BP 113/78
--- NOTE | 2017-02-10 10:35 | CR ---
EXAM DATE: 02/10/17 PATIENT'S AGE: 31 Patient: JEAN-CLAUDE AMEZCUA Facility: [place], [place] Site . Site : 1985 Study: XRay Chest [id number]/[id number]/2017 12:34:18 AM Ordering Physician: Dewey Das Final Report: INDICATION: SOB TECHNIQUE: Chest 1 view COMPARISON: None FINDINGS: Cardiovascular and mediastinum: Heart size and vasculature are normal in caliber and appearance. Mediastinum is within normal limits. Lungs and pleural space: No focal consolidation. No sign of pleural effusion. No pneumothorax. Bones and soft tissues: No significant findings. IMPRESSION: No acute cardiopulmonary disease. Dictated by Dc Mccain MD @ 02/10/2017 12:35:46 AM Dictated by: Dc Mccain MD @ 02/10/2017 00:35:57 (Electronic Signature) Report Signed by Proxy. [facility]
== END 2017-02-10 00:52 | disposition home or self-care (01) ==
LOC: MW.ED
DX: R06.00 Dyspnea, unspecified (principal); J45.909 Unspecified asthma, uncomplicated; Z79.899 Other long term (current) drug therapy; F31.9 Bipolar disorder, unspecified; F41.9 Anxiety disorder, unspecified; F17.210 Nicotine dependence, cigarettes, uncomplicated; E66.9 Obesity, unspecified; Z68.43 Body mass index [BMI] 50.0-59.9, adult; Z88.1 Allergy status to other antibiotic agents; Z90.49 Acquired absence of other specified parts of digestive tract
CPT/HCPCS: 71010; 71010-26; 99282; 99285

== ENCOUNTER 2017-02-14 22:34 | Emergency (ER) | payer MEDICARE, MEDICAID ==
--- NOTE | 2017-02-14 22:49 | EDM.PDOC ---
ED HPI GENERAL MEDICAL PROBLEM - General Chief Complaint: General Stated Complaint: PT HAS BRUISE ON LT SIDE OF BODY Time Seen by Provider: 02/14/17 22:47 - History of Present Illness INITIAL COMMENTS - FREE TEXT/NARRATIVE: HISTORY AND PHYSICAL: History of present illness: Patient 31-year-old female shunts with some contusion to her left hip she denies any trauma or other concern Review of systems: As per history of present illness and below otherwise all systems reviewed and negative. Past medical history: As per history of present illness and as reviewed below otherwise noncontributory. Surgical history: As per history of present illness and as reviewed below otherwise noncontributory. Social history: No reported history of drug or alcohol abuse. Family history: As per history of present illness and as reviewed below otherwise noncontributory. Physical exam: HEENT: Atraumatic, normocephalic, pupils reactive, negative for conjunctival pallor or scleral icterus, mucous membranes moist, throat clear, neck supple, nontender, trachea midline. Lungs: Clear to auscultation, breath sounds equal bilaterally, chest nontender. Heart: S1S2, regular, negative for clicks, rubs, or JVD. Abdomen: Soft, nondistended, nontender. Negative for masses or hepatosplenomegaly. Negative for costovertebral tenderness. Pelvis: Stable nontender. Patient noted to have a ecchymotic area in the region of her left superior iliac crest is approximately 10 x 8 cm there is no erythema no significant induration or fluctuance Genitourinary: Deferred. Rectal: Deferred. Extremities: Atraumatic, negative for cords or calf pain. Neurovascular unremarkable. Neuro: Awake, alert, oriented. Cranial nerves II through XII unremarkable. Cerebellum unremarkable. Motor and sensory unremarkable throughout. Exam nonfocal. Diagnostics: None Therapeutics: None Impression: #1 contusion left hip Definitive disposition and diagnosis as appropriate pending reevaluation and review of above. left hip Pain Score (Numeric/FACES): 9 - Related Data Allergies Allergy/AdvReac Type Severity Reaction Status Date / Time metronidazole [From Flagyl] Allergy Vomiting Verified 02/10/17 00:01 Home Meds: Home Meds QUEtiapine [SEROquel] 200 mg PO DAILY 12/03/16 [History] traZODone 50 mg PO ONETIME 12/03/16 [History] lamoTRIgine [Lamotrigine] 200 mg PO BID 01/25/17 [History] Pantoprazole Sodium [Protonix] 40 mg PO DAILY #14 tablet. 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 Musculoskeletal History: Reports: None Neurological History: Reports: Seizure Psychiatric History: Reports: ADHD, Anxiety, Bipolar, Depression Endocrine/Metabolic History: Reports: Obesity/BMI 30+ Hematologic History: Reports: None Immunologic History: Reports: None Oncologic (Cancer) History: Reports: None Dermatologic History: Reports: None - Infectious Disease History Infectious Disease History: Reports: Chicken Pox - Past Surgical History Head Surgeries/Procedures: Reports: None Cardiovascular Surgical History: Reports: None Respiratory Surgical History: Reports: None GI Surgical History: Reports: Appendectomy, Cholecystectomy Female Surgical History: Reports: None Endocrine Surgical History: Reports: None Neurological Surgical History: Reports: None Musculoskeletal Surgical History: Reports: Arthroscopic Knee Oncologic Surgical History: Reports: None Dermatological Surgical History: Reports: None Social & Family History - Family History Family Medical History: Noncontributory Cardiac: Reports: Heart Failure, Hypertension, [place] Endocrine/Metabolic: Reports: Diabetes, type II Oncologic: Reports: Bone, Breast - Tobacco Use Smoking Status *Q: Current Every Day Smoker Years of Tobacco use: 17 Packs/Tins Daily: 1 Used Tobacco, but Quit: No Second Hand Smoke Exposure: No - Caffeine Use Caffeine Use: Reports: Coffee Caffeine Use Comment: 1-2 daily - Recreational Drug Use Recreational Drug Use: No Drug Use in Last 12 Months: No ED ROS GENERAL - Review of Systems Review Of Systems: ROS reveals no pertinent complaints other than HPI. ED EXAM, GENERAL - Physical Exam Exam: See Below (See dictation) Course - Vital Signs Last Recorded V/S: Last Vital Signs Temp 36.4 C 02/14/17 22:40 Pulse 98 02/14/17 22:40 Resp 20 02/14/17 22:40 BP 137/85 02/14/17 22:40 Pulse Ox 97 02/14/17 22:40 Departure - Departure Time of Disposition: 22:49 Disposition: Home, Self-Care 01 Condition: good Clinical Impression: Contusion - Discharge Information Forms: ED Department Discharge Additional Instructions: The following information is given to patients seen in the emergency department who are being discharged to home. This information is to outline your options for follow-up care. We provide all patients seen in our emergency department with a follow-up referral. The need for follow-up, as well as the timing and circumstances, are variable depending upon the specifics of your emergency department visit. If you don't have a primary care physician on staff, we will provide you with a referral. We always advise you to contact your personal physician following an emergency department visit to inform them of the circumstance of the visit and for follow-up with them and/or the need for any referrals to a consulting specialist. The emergency department will also refer you to a specialist when appropriate. This referral assures that you have the opportunity for followup care with a specialist. All of these measure are taken in an effort to provide you with optimal care, which includes your followup. Under all circumstances we always encourage you to contact your private physician who remains a resource for coordinating your care. When calling for followup care, please make the office aware that this follow-up is from your recent emergency room visit. If for any reason you are refused follow-up, please contact the [facility] emergency department at and asked to speak to the emergency department charge nurse. [facility] Primary [facility] [address] [place] [id number] Motrin/Tylenol as directed follow up primary medical doctor one to 2 days return as needed as discussed
[2017-02-14 22:52] VITALS: BP 137/85
== END 2017-02-14 22:59 | disposition home or self-care (01) ==
LOC: MW.ED 22:34
DX: S70.02XA Contusion of left hip, initial encounter (principal); F17.210 Nicotine dependence, cigarettes, uncomplicated; J45.909 Unspecified asthma, uncomplicated; E66.9 Obesity, unspecified; Z68.43 Body mass index [BMI] 50.0-59.9, adult; Z79.899 Other long term (current) drug therapy; Z90.49 Acquired absence of other specified parts of digestive tract; Z88.1 Allergy status to other antibiotic agents; Z68.31 Body mass index [BMI] 31.0-31.9, adult; X58.XXXA Exposure to other specified factors, initial encounter
CPT/HCPCS: 99282; 99283

== ENCOUNTER 2017-03-19 21:28 | Emergency (ER) | payer MEDICARE, MEDICAID ==
--- NOTE | 2017-03-19 21:36 | EDM.PDOC ---
ED HPI GENERAL MEDICAL PROBLEM - General Chief Complaint: Lower Extremity Injury/Pain Stated Complaint: PAIN/SWOLLEN RT ANKLE Time Seen by Provider: 03/19/17 21:35 Source of Information: Reports: Patient - History of Present Illness INITIAL COMMENTS - FREE TEXT/NARRATIVE: HISTORY AND PHYSICAL: History of present illness: []Patient complains of 6 out of 10 right ankle pain also involving the foot after rolling her ankle yesterday coming down some steps She is unable to bear weight due to pain Mild swelling of the ankle entirely limb is neurovascularly intact no open lesion no bruising Review of systems: As per history of present illness and below otherwise all systems reviewed and negative. Past medical history: As per history of present illness and as reviewed below otherwise noncontributory. Surgical history: As per history of present illness and as reviewed below otherwise noncontributory. Social history: No reported history of drug or alcohol abuse. Family history: As per history of present illness and as reviewed below otherwise noncontributory. Physical exam: HEENT: Atraumatic, normocephalic, pupils reactive, negative for conjunctival pallor or scleral icterus, mucous membranes moist, throat clear, neck supple, nontender, trachea midline. Lungs: Clear to auscultation, breath sounds equal bilaterally, chest nontender. Heart: S1S2, regular, negative for clicks, rubs, or JVD. Abdomen: Soft, nondistended, nontender. Negative for masses or hepatosplenomegaly. Negative for costovertebral tenderness. Pelvis: Stable nontender. Genitourinary: Deferred. Rectal: Deferred. Extremities: Atraumatic, negative for cords or calf pain. Neurovascular unremarkable. Neuro: Awake, alert, oriented. Cranial nerves II through XII unremarkable. Cerebellum unremarkable. Motor and sensory unremarkable throughout. Exam nonfocal. Right lower extremity unaffected above the ankle, see history of present illness Diagnostics: []Right foot 3 views Right ankle 3 views Therapeutics: Air splint Crutches Weightbearing as tolerated Rest ice ibuprofen elevation Impression: []Right ankle sprain Definitive disposition and diagnosis as appropriate pending reevaluation and review of above. Right Ankle Pain Score (Numeric/FACES): 9 - Related Data Allergies Allergy/AdvReac Type Severity Reaction Status Date / Time metronidazole [From Flagyl] Allergy Vomiting Verified 02/10/17 00:01 Home Meds: Home Meds QUEtiapine [SEROquel] 200 mg PO DAILY 12/03/16 [History] traZODone 50 mg PO ONETIME 12/03/16 [History] lamoTRIgine [Lamotrigine] 200 mg PO BID 01/25/17 [History] Pantoprazole Sodium [Protonix] 40 mg PO DAILY #14 tablet. 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 Musculoskeletal History: Reports: None Neurological History: Reports: Seizure Psychiatric History: Reports: ADHD, Anxiety, Bipolar, Depression Endocrine/Metabolic History: Reports: Obesity/BMI 30+ Hematologic History: Reports: None Immunologic History: Reports: None Oncologic (Cancer) History: Reports: None Dermatologic History: Reports: None - Infectious Disease History Infectious Disease History: Reports: Chicken Pox - Past Surgical History Head Surgeries/Procedures: Reports: None Cardiovascular Surgical History: Reports: None Respiratory Surgical History: Reports: None GI Surgical History: Reports: Appendectomy, Cholecystectomy Female Surgical History: Reports: None Endocrine Surgical History: Reports: None Neurological Surgical History: Reports: None Musculoskeletal Surgical History: Reports: Arthroscopic Knee Oncologic Surgical History: Reports: None Dermatological Surgical History: Reports: None Social & Family History - Family History Family Medical History: Noncontributory Cardiac: Reports: Heart Failure, Hypertension, [place] Endocrine/Metabolic: Reports: Diabetes, type II Oncologic: Reports: Bone, Breast - Tobacco Use Smoking Status *Q: Current Every Day Smoker Years of Tobacco use: 17 Packs/Tins Daily: 1 Used Tobacco, but Quit: No Second Hand Smoke Exposure: No - Caffeine Use Caffeine Use: Reports: Coffee Caffeine Use Comment: 1-2 daily - Recreational Drug Use Recreational Drug Use: No Drug Use in Last 12 Months: No Review of Systems - Review of Systems Review Of Systems: ROS reveals no pertinent complaints other than HPI. ED EXAM, GENERAL - Physical Exam Exam: See Below Course - Vital Signs Last Recorded V/S: Last Vital Signs Temp 36.2 C 03/19/17 21:36 Pulse 92 03/19/17 21:36 Resp 20 03/19/17 21:36 BP 132/78 03/19/17 21:36 Pulse Ox 96 03/19/17 21:36 - Orders/Labs/Meds Orders: Active Orders 24 hr Category Date Time Status Ankle Min 3V Rt [CR] Stat Exams 03/19/17 21:34 Taken Foot Comp Min 3V Rt [CR] Stat Exams 03/19/17 21:34 Taken Departure - Departure Time of Disposition: 22:13 Disposition: Home, Self-Care 01 Condition: Good Clinical Impression: Ankle sprain - Discharge Information Forms: ED Department Discharge Additional Instructions: Rest Ice 20 minute intervals 3 times daily Ibuprofen 4-800 mg 3 times daily 7-10 days Elevation all at rest of foot [ Crutches for comfort weightbearing as tolerated Follow-up with primary care or orthopedist 2 weeks [facility] [address] [place] [id number] [facility] [address] [place] [address], [address] [place] [address] my orthopedic The following information is given to patients seen in the emergency department who are being discharged to home. This information is to outline your options for follow-up care. We provide all patients seen in our emergency department with a follow-up referral. The need for follow-up, as well as the timing and circumstances, are variable depending upon the specifics of your emergency department visit. If you don't have a primary care physician on staff, we will provide you with a referral. We always advise you to contact your personal physician following an emergency department visit to inform them of the circumstance of the visit and for follow-up with them and/or the need for any referrals to a consulting specialist. The emergency department will also refer you to a specialist when appropriate. This referral assures that you have the opportunity for follow-up care with a specialist. All of these measure are taken in an effort to provide you with optimal care, which includes your follow-up. Under all circumstances we always encourage you to contact your private physician who remains a resource for coordinating your care. When calling for follow-up care, please make the office aware that this follow-up is from your recent emergency room visit. If for any reason you are refused follow-up, please contact the [facility] emergency department at and asked to speak to the emergency department charge nurse. - My Orders Last 24 Hours: My Active Orders 03/19/17 21:34 Ankle Min 3V Rt [CR] Stat Foot Comp Min 3V Rt [CR] Stat - Assessment/Plan Last 24 Hours: My Active Orders 03/19/17 21:34 Ankle Min 3V Rt [CR] Stat Foot Comp Min 3V Rt [CR] Stat
[2017-03-19 21:39] VITALS: BP 132/78
--- NOTE | 2017-03-20 13:34 | CR ---
EXAM DATE: 03/19/17 PATIENT'S AGE: 31 Patient: JEAN-CLAUDE AMEZCUA Facility: [place], [place] Site . Site : 1985 Study: XRay Extremity Right FOOT [id number]/25/2017 9:55:59 PM Ordering Physician: Jeff Sanchez Final Report: Indication: Pain after rolling ankle Technique: Three views right foot Comparison: None Findings: Bones: Alignment is normal. No acute fractures or bone lesions. Small inferior calcaneal enthesophyte Joint spaces: Unremarkable. Soft tissues: Unremarkable. Impression: No acute abnormality. Dictated by Kellen Calles MD @ Mar 19 2017 10:08PM (Electronic Signature) Report Signed by Proxy. KARIS
--- NOTE | 2017-03-20 13:37 | CR ---
EXAM DATE: 03/19/17 PATIENT'S AGE: 31 Patient: JEAN-CLAUDE AMEZCUA Facility: [place], [place] Site . Site : 1985 Study: XRay Extremity Right ANKLE [id number] 9:56:37 PM Ordering Physician: Jeff Sanchez Final Report: Indication: Pain after rolling ankle Technique: Three views right ankle Comparison: None Findings: Bones: Alignment is normal. No acute fractures or bone lesions. There is a small inferior calcaneal enthesophyte. Joint spaces: Unremarkable. Soft tissues: Unremarkable. Impression: No acute abnormality. Dictated by Kellen Calles MD @ Mar 19 2017 10:08PM (Electronic Signature) Report Signed by Proxy. KARIS
== END 2017-03-19 23:09 | disposition home or self-care (01) ==
LOC: MW.ED 21:28
DX: S93.401A Sprain of unspecified ligament of right ankle, initial encounter (principal); J45.909 Unspecified asthma, uncomplicated; F41.9 Anxiety disorder, unspecified; F31.9 Bipolar disorder, unspecified; E66.9 Obesity, unspecified; F17.210 Nicotine dependence, cigarettes, uncomplicated; Z88.1 Allergy status to other antibiotic agents; Z79.899 Other long term (current) drug therapy; Z90.49 Acquired absence of other specified parts of digestive tract; Z98.890 Other specified postprocedural states; Z68.43 Body mass index [BMI] 50.0-59.9, adult; X50.9XXA Other and unspecified overexertion or strenuous movements or postures, initial encounter
CPT/HCPCS: 73610-26-RT; 73610-RT; 73630-26-RT; 73630-RT; 99282; 99283